=== PATIENT | male | born 1935 | race Caucasian/White ===

== ENCOUNTER 2019-04-03 09:03 | Observation (INO) | payer MEDICARE, BC, OTHER ==
[2019-04-03] MEDS ORDERED: diphenhydrAMINE 25 MG Cap PO ONE (09:51)
[2019-04-03] MEDS ORDERED: Albuterol/Ipratropium 3.0-0.5 MG/3 ML Neb Soln NEB ONE (09:52)
--- NOTE | 2019-04-03 09:59 | EDM.PDOC ---
ED HPI GENERAL MEDICAL PROBLEM - General Chief Complaint: General Stated Complaint: TONGUE BLEEDING Time Seen by Provider: 04/03/19 09:40 Source of Information: Reports: Patient History Limitations: Reports: No Limitations - History of Present Illness INITIAL COMMENTS - FREE TEXT/NARRATIVE: This 83 year old male presents to the ED with a chief complaint of progressive SOB for two weeks. He denies any chest pain or chest pressure. He states that his other main complaint is generalized itching over most of his body and felt this is somehow related to shingles he had two years ago. He denies any other complaints at this time. The patient also complains of bleeding from his tongue from time to time. Onset: Gradual Duration: Week(s): (two weeks.), Getting Worse Severity: Moderate (SOB at this time.) Improves with: Reports: None Worsens with: Reports: None Context: Reports: Activity Associated Symptoms: Reports: Cough (occasional coughing without sputum production.) - Related Data Allergies Allergy/AdvReac Type Severity Reaction Status Date / Time No Known Allergies Allergy Verified 10/10/14 10:19 Home Meds: Home Meds Ibuprofen 1 tab PO PRN 10/10/14 [History] Carvedilol [Coreg] 12.5 mg PO DAILY 04/03/19 [History] Furosemide 60 mg PO DAILY 04/03/19 [History] Losartan [Cozaar] 25 mg PO BID 04/03/19 [History] Rivaroxaban [Xarelto] 20 mg PO DAILY 04/03/19 [History] Past Medical History Cardiovascular History: Reports: Afib, High Cholesterol, Hypertension Other Cardiovascular History: PT uncertain of exact cardiac history Respiratory History: Reports: None Other Respiratory History: 50 yr history of smoking, QUIT 6 yrs Ago, do feel short of breath once in awhile Other Gastrointestinal History: Occasional heartburn treat with TUMS/Rolaids Other Genitourinary History: reported kidney issue but unk exact dx Other Musculoskeletal History: Fractured hip as Young boy - Left In hospital traction, Back injury in Oilfield work, have Low back pain Other Dermatologic History: Skin pigment changes over my arms/face - Infectious Disease History Infectious Disease History: Reports: Measles - Past Surgical History Other HEENT Surgeries/Procedures: Bilateral cataract with Lens implants Social & Family History - Family History Family Medical History: Noncontributory - Tobacco Use Smoking Status *Q: Former Smoker Used Tobacco, but Quit: Yes Month/Year Tobacco Last Used: 02/1969 - Recreational Drug Use Recreational Drug Use: No ED ROS GENERAL - Review of Systems Review Of Systems: See Below Constitutional: Reports: No Symptoms HEENT: Reports: No Symptoms Respiratory: Reports: Shortness of Breath, Wheezing (very mild wheezing.), Cough. Denies: Sputum, Hemoptysis Cardiovascular: Reports: No Symptoms, Edema (of lower extremities.), Orthopnea. Denies: Chest Pain, Claudication Endocrine: Reports: No Symptoms GI/Abdominal: Reports: No Symptoms : Reports: No Symptoms Musculoskeletal: Reports: No Symptoms Skin: Reports: Other (generalized itching without rash.) Neurological: Reports: No Symptoms Psychiatric: Reports: No Symptoms ED EXAM, GENERAL - Physical Exam Exam: See Below Exam Limited By: No Limitations General Appearance: Alert, WD/WN, No Apparent Distress Eye Exam: Bilateral Eye: EOMI, Normal Inspection, PERRL Ears: Normal External Exam, Normal Canal, Hearing Grossly Normal, Normal TMs Ear Exam: Bilateral Ear: Auricle Normal, Canal Normal, TM normal Nose: Normal Inspection, Normal Mucosa, No Blood Throat/Mouth: Normal Lips, Normal Teeth, Normal Gums, Normal Voice, No Airway Compromise, Other (very small area of bleeding from the mid anterior tongue is noted.) Head: Atraumatic, Normocephalic Neck: Normal Inspection, Supple, Non-Tender, Full Range of Motion. No: Carotid Bruit Respiratory/Chest: Rales (noted in right base.), Prolonged Expiration, Other ( No acute respiratory distress.). No: Stridor, Pleural Rub, Accessory Muscle Use , Retractions Cardiovascular: Normal Peripheral Pulses, Regular Rate, Rhythm, No JVD, Systolic Murmur (grade 2/6 best heard at the apex without radiation of murmur.) . No: Gallop/S3, Gallop/S4, Friction Rub Peripheral Pulses: 3+: Carotid (L), Carotid (R), Femoral (L), Femoral (R), Dorsalis Pedis (L), Dorsalis Pedis (R) GI/Abdominal: Normal Bowel Sounds, Soft, Non-Tender, No Organomegaly, No Distention, No Abnormal Bruit, No Mass (Male) Exam: Deferred Rectal (Males) Exam: Normal Rectal Tone, Prostate Normal, Heme + Stool (grossly positive for blood.). No: Fecal Impaction, Hemorrhoids, Mass Back Exam: Normal Inspection, Full Range of Motion, Other (No sign of rash.) Extremities: Normal Inspection, Normal Range of Motion (for age.), Non-Tender, Normal Capillary Refill, Other (pre-tibial edema 2+ of both legs.). No: Leah' s Sign, Increased Warmth, Mottled, Pallor, Redness Neurological: Alert, Oriented, CN II-XII Intact, Normal Cognition, Normal Gait, Normal Reflexes, No Motor/Sensory Deficits Skin Exam: Warm, Dry, Intact, Normal Color, No Rash. No: Zoster-Like Rash Lymphatic: No Adenopathy Course - Vital Signs Text/Narrative:: I discussed all of the patients lab and imaging studies. I told him that he has a GI bleed and that we would like to admit him for further evaluation and treatment. He agrees with the admission plan. I discussed this case with Dr. Murrieta at 1:21PM he would like to have this patient admitted to the Hospitalist and he will do endoscopy. I discussed this case with Dr. Fairbanks and he will admit the patient to [facility]. Last Recorded V/S: Last Vital Signs Temp 97.8 F 04/03/19 13:30 Pulse 80 04/03/19 13:30 Resp 18 04/03/19 13:30 BP 130/79 04/03/19 13:30 Pulse Ox 99 04/03/19 13:30 - Orders/Labs/Meds Orders: Active Orders 24 hr Category Date Time Status RT Aerosol Therapy [RC] ASDIRECTED Care 04/03/19 09:52 Active Sodium Chloride 0.9% [Normal Saline] 1,000 ml Med 04/03/19 11:00 Active IV ASDIRECTED Medication Orders Sodium Chloride (Normal Saline) 1,000 mls @ 125 mls/hr IV ASDIRECTED ROSALBA Last Admin: 04/03/19 12:21 Dose: 125 mls/hr Labs: Laboratory Tests 04/03/19 04/03/19 04/03/19 Range/Units 09:28 09:28 09:28 WBC 7.36 (4.0-11.0) K/uL RBC 3.24 L (4.50-5.90) M/uL Hgb 8.6 L (13.0-17.0) g/dL Hct 28.8 L (38.0-50.0) % MCV 88.9 (80.0-98.0) fL MCH 26.5 L (27.0-32.0) pg MCHC 29.9 L (31.0-37.0) g/dL RDW Std Deviation 50.0 (28.0-62.0) fl RDW Coeff of Dayanna 15 (11.0-15.0) % Plt Count 235 (150-400) K/uL MPV 10.20 (7.40-12.00) fL Neut % (Auto) 75.5 (48.0-80.0) % Lymph % (Auto) 8.4 L (16.0-40.0) % Trigg % (Auto) 11.8 (0.0-15.0) % Eos % (Auto) 3.8 (0.0-7.0) % Baso % (Auto) 0.5 (0.0-1.5) % Neut # (Auto) 5.6 (1.4-5.7) K/uL Lymph # (Auto) 0.6 (0.6-2.4) K/uL Trigg # (Auto) 0.9 H (0.0-0.8) K/uL Eos # (Auto) 0.3 (0.0-0.7) K/uL Baso # (Auto) 0.0 (0.0-0.1) K/uL Nucleated RBC % 0.5 /100WBC Nucleated RBCs # 0 K/uL INR 1.34 Sodium 148 (136-148) mmol/L Potassium 4.0 (3.5-5.1) mmol/L Chloride 109 H (98-107) mmol/L Carbon Dioxide 29.0 (21.0-32.0) mmol/L BUN 18 (7.0-18.0) mg/dL Creatinine 0.9 (0.8-1.3) mg/dL Est Cr Clr Drug Dosing 65.86 mL/min Estimated GFR (MDRD) > 60.0 ml/min Glucose 115 H (74-106) mg/dL Calcium 8.4 L (8.5-10.1) mg/dL Total Bilirubin 0.5 (0.2-1.0) mg/dL AST 25 (15-37) IU/L ALT 30 (14-63) IU/L Alkaline Phosphatase 75 (46-116) U/L Troponin I < 0.050 (0.000-0.056) ng/mL B-Natriuretic Peptide (<100) PG/ML Total Protein 6.3 L (6.4-8.2) g/dL Albumin 3.4 (3.4-5.0) g/dL Globulin 2.9 (2.6-4.0) g/dL Albumin/Globulin Ratio 1.2 (0.9-1.6) Blood Type Antibody Screen 04/03/19 04/03/19 Range/Units 09:28 11:07 WBC (4.0-11.0) K/uL RBC (4.50-5.90) M/uL Hgb (13.0-17.0) g/dL Hct (38.0-50.0) % MCV (80.0-98.0) fL MCH (27.0-32.0) pg MCHC (31.0-37.0) g/dL RDW Std Deviation (28.0-62.0) fl RDW Coeff of Dayanna (11.0-15.0) % Plt Count (150-400) K/uL MPV (7.40-12.00) fL Neut % (Auto) (48.0-80.0) % Lymph % (Auto) (16.0-40.0) % Trigg % (Auto) (0.0-15.0) % Eos % (Auto) (0.0-7.0) % Baso % (Auto) (0.0-1.5) % Neut # (Auto) (1.4-5.7) K/uL Lymph # (Auto) (0.6-2.4) K/uL Trigg # (Auto) (0.0-0.8) K/uL Eos # (Auto) (0.0-0.7) K/uL Baso # (Auto) (0.0-0.1) K/uL Nucleated RBC % /100WBC Nucleated RBCs # K/uL INR Sodium (136-148) mmol/L Potassium (3.5-5.1) mmol/L Chloride (98-107) mmol/L Carbon Dioxide (21.0-32.0) mmol/L BUN (7.0-18.0) mg/dL Creatinine (0.8-1.3) mg/dL Est Cr Clr Drug Dosing mL/min Estimated GFR (MDRD) ml/min Glucose (74-106) mg/dL Calcium (8.5-10.1) mg/dL Total Bilirubin (0.2-1.0) mg/dL AST (15-37) IU/L ALT (14-63) IU/L Alkaline Phosphatase (46-116) U/L Troponin I (0.000-0.056) ng/mL B-Natriuretic Peptide 282 H (<100) PG/ML Total Protein (6.4-8.2) g/dL Albumin (3.4-5.0) g/dL Globulin (2.6-4.0) g/dL Albumin/Globulin Ratio (0.9-1.6) Blood Type A NEGATIVE Antibody Screen NEGATIVE Meds: Medications Generic Name Dose Route Start Last Admin Trade Name Freq PRN Reason Stop Dose Admin Sodium Chloride 1,000 mls @ 125 mls/hr 04/03/19 11:00 04/03/19 12:21 Normal Saline IV 125 mls/hr ASDIRECTED ROSALBA Administration Discontinued Medications Generic Name Dose Route Start Last Admin Trade Name Freq PRN Reason Stop Dose Admin Albuterol/Ipratropium 3 ml 04/03/19 09:52 04/03/19 10:07 Duoneb 3.0-0.5 Mg/3 Ml NEB 04/03/19 09:53 3 ml ONETIME ONE Administration Diphenhydramine HCl 25 mg 04/03/19 09:51 04/03/19 10:07 Benadryl PO 04/03/19 09:52 25 mg ONETIME ONE Administration Iopamidol 100 ml 04/03/19 11:37 04/03/19 11:51 Isovue Multipack-370 (76%) IVPUSH 04/03/19 11:38 100 ml ONETIME STA Administration Departure - Departure Time of Disposition: 13:55 Disposition: Refer to Observation Condition: Fair Clinical Impression: Pleural effusion on right GI bleed Qualifiers: GI bleed type/associated pathology: unspecified gastrointestinal hemorrhage type Qualified Code(s): K92.2 - Gastrointestinal hemorrhage, unspecified - Discharge Information *PRESCRIPTION DRUG MONITORING PROGRAM REVIEWED*: Yes *COPY OF PRESCRIPTION DRUG MONITORING REPORT IN PATIENT ANABELA: Yes Sepsis Event Note - Evaluation Sepsis Screening Result: No Definite Risk - Focused Exam Vital Signs: Vital Signs Temp Pulse Resp BP Pulse Ox 04/03/19 13:30 97.8 F 80 18 130/79 99 04/03/19 10:30 77 16 113/70 97 04/03/19 09:25 95.6 F 91 16 125/76 93 L Date Exam was Performed: 04/03/19 Time Exam was Performed: 13:51 - My Orders Last 24 Hours: My Active Orders 04/03/19 09:52 RT Aerosol Therapy [RC] ASDIRECTED 04/03/19 11:00 Sodium Chloride 0.9% [Normal Saline] 1,000 ml IV ASDIRECTED - Assessment/Plan Last 24 Hours: My Active Orders 04/03/19 09:52 RT Aerosol Therapy [RC] ASDIRECTED 04/03/19 11:00 Sodium Chloride 0.9% [Normal Saline] 1,000 ml IV ASDIRECTED
[2019-04-03 10:20] LABS: BLOOD UREA NITROGEN,BUN 18 mg/dL (7.0-18.0); CHLORIDE,CL 109 mmol/L (98-107); GLUCOSE RANDOM 115 mg/dL (74-106); SODIUM,NA 148 mmol/L (136-148)
[2019-04-03] MEDS ORDERED: Sodium Chloride 0.9% 1,000 ML IV SCH (11:00)
--- NOTE | 2019-04-03 11:00 | CR ---
Chest: 2 views of the chest were obtained. Comparison: No previous chest x-ray. Heart is enlarged. Pulmonary vessels are increased. Lungs otherwise are clear with no alveolar type densities. Bony structures are osteopenic. Impression: 1. Findings which are suspicious for mild CHF (either acute or chronic). Diagnostic code #3 This report was dictated in [place] Standard Time
[2019-04-03] MEDS ORDERED: Iopamidol 755 MG/ML 200 ML Multipack Bottle IVPUSH STA (11:37)
--- NOTE | 2019-04-03 12:38 | CT ---
CT abdomen and pelvis Technique: Multiple axial sections were obtained from above the dome of the diaphragm inferiorly through the pubic symphysis. Intravenous contrast was utilized. No oral contrast has been given. Comparison: No prior abdominal or pelvic CT exam. Findings: Small right-sided pleural effusion is seen. Coronary artery calcification is seen. Trace pleural effusion is noted on the left side. Interstitial change is noted within both lung bases which is felt compatible with fibrosis. Small low density lesion is noted within the dome of the right lobe of the liver which is stable from prior chest CT study of 09 7. This is most likely due to a small cyst. No additional abnormality is seen within the liver. Small hiatal hernia is present. Gallbladder wall shows equivocal edema. Gallbladder shows no calcified gallstones. Spleen appears within normal limits. Presumed exophytic cyst noted off the upper right kidney measuring 6.7 cm. Kidneys are otherwise unremarkable. Adrenal glands show no nodule. Pancreas is within normal limits. Aorta shows atherosclerotic calcification which continues into the iliac vessels. No aneurysm is seen. No retroperitoneal adenopathy is seen. No mesenteric abnormalities are seen. No pelvic mass or adenopathy is noted. No free fluid or inflammatory change is seen. Prostate calcifications are noted. Appendix not visualized with certainty. Impression: 1. Small right-sided pleural effusion and trace left-sided pleural effusion. Interstitial fibrosis within both lung bases. Coronary artery calcification is also noted. 2. Small hiatal hernia. 3. Questionable gallbladder wall edema. This may be due to respiratory motion artifact but please correlate that patient has no gallbladder symptoms to indicate gallbladder ultrasound. 4. Other findings believed to be incidental. Nothing acute is appreciated on CT study of the abdomen and pelvis. No etiology is identified for the patient's bleeding. Note: Nuclear medicine GI bleed study could be considered if clinically needed. Diagnostic code #2 This report was dictated in [place] Standard Time
[2019-04-03] MEDS ORDERED: Pantoprazole 80 MG in Sodium Chloride 0.9% 20 ML IV ONE (14:41)
[2019-04-03] MEDS ORDERED: Ondansetron 4 MG/2 ML SDV IVPUSH PRN (14:42)
[2019-04-03] MEDS ORDERED: Sodium Chloride 0.9% 2.5 ML Syringe FLUSH PRN (14:42)
[2019-04-03] MEDS ORDERED: Furosemide 20 MG/2 ML VIAL IVPUSH ONE ×4 (14:43→23:04)
--- NOTE | 2019-04-03 15:22 | PCM.HP.2 ---
H&P History of Present Illness - General Date of Service: 04/03/19 Admit Problem/Dx: Admission Diagnosis/Problem Admission Diagnosis/Problem GI bleed not requiring more than 4 units of blood in 24 hours, ICU, or surgery Source of Information: Patient, Old Records History Limitations: Reports: No Limitations - History of Present Illness Initial Comments - Free Text/Narative: This 83 year old male with pmh of afib on Xarelto, CHF with severe systolic dysfunction, LV 30%, COPD, and HTN presented to the ED today with complaints of bleeding tongue. He reports he was brushing his teeth today and his tongue started bleeding. He denies obvious blood in his stools, reports they have been black, but he takes Peptobismal frequently due to some diarrhea. The last time he took it was yesterday. He reports history of heartburn and gastric ulcers. he reports he has been taking 800 mg Ibuprofen BID prescribed by PCP, along with his Xarelto. He reports increased SOB over the last two weeks. reports some swelling to lower extremities, not necessarily increased from baseline. Reports sleeping on multiple pillows at night otherwise he can't sleep. He feels more dyspneic with activity recently. He also reports itching all over, that has started the last couple weeks, he showers and it improves. No noted rashes. Denies chest pain or palpitations. No abdominal pain or urinary concerns. He denies focal neurological deficit. Reports history of smoking, but quit. Rare alcohol use and no recreational drug use. In the ED no leukocytosis noted. Hgb 8.6. BUN 18, Cr 0.9 troponin negative. BNP 289. CXR revealed cardiomegaly and mild CHF. CT of abdomen revealed sm R sided pleural effusion as well as trace L pleural effusion. Note gallbladder with mild edema, no stones. otherwise no acute findings. He was given IVFs in the ED along with benadryl for complaints of all over itching. PCP, Dr Paulino at [facility] - Related Data Allergies/Adverse Reactions: Allergies Allergy/AdvReac Type Severity Reaction Status Date / Time No Known Allergies Allergy Verified 04/03/19 14:54 Home Medications: Home Meds Ibuprofen 1 tab PO PRN 10/10/14 [History] Carvedilol [Coreg] 12.5 mg PO DAILY 04/03/19 [History] Furosemide 60 mg PO DAILY 04/03/19 [History] Losartan [Cozaar] 25 mg PO BID 04/03/19 [History] Rivaroxaban [Xarelto] 20 mg PO DAILY 04/03/19 [History] Past Medical History Cardiovascular History: Reports: Afib, CAD, Heart Failure, High Cholesterol, Hypertension Respiratory History: Reports: COPD Other Respiratory History: 50 yr history of smoking, QUIT 11 yrs Ago, do feel short of breath once in awhile Other Gastrointestinal History: Occasional heartburn treat with TUMS/Rolaids Other Genitourinary History: reported kidney issue but unk exact dx Other Musculoskeletal History: Fractured hip as Young boy - Left In hospital traction, Back injury in Oilfield work, have Low back pain Other Dermatologic History: Skin pigment changes over my arms/face - Infectious Disease History Infectious Disease History: Reports: Measles - Past Surgical History HEENT Surgical History: Reports: Tonsillectomy Other HEENT Surgeries/Procedures: Bilateral cataract with Lens implants GI Surgical History: Reports: Appendectomy Social & Family History - Family History Family Medical History: Noncontributory - Tobacco Use Smoking Status *Q: Former Smoker Used Tobacco, but Quit: Yes Month/Year Tobacco Last Used: 2009 - Caffeine Use Caffeine Use: Reports: Coffee - Alcohol Use Alcohol Use Frequency: Rarely, Socially - Recreational Drug Use Recreational Drug Use: No - Living Situation & Occupation Living situation: Reports: Occupation: Retired H&P Review of Systems - Review of Systems: Review Of Systems: See Below General: Reports: Fatigue. Denies: Fever, Chills, Malaise HEENT: Reports: Other (tongue bleeding with brushing teeth and intermittently since). Denies: Sore Throat, Vertigo Pulmonary: Reports: Shortness of Breath (with exertion). Denies: Cough, Sputum Cardiovascular: Reports: Dyspnea on Exertion, Edema. Denies: Lightheadedness Gastrointestinal: Reports: Black Stool. Denies: Abdominal Pain, Bloody Stool, Diarrhea, Nausea, Vomiting Genitourinary: Reports: No Symptoms. Denies: Dysuria, Frequency, Burning Musculoskeletal: Reports: No Symptoms. Denies: Neck Pain, Shoulder Pain, Back Pain Neurological: Reports: No Symptoms Hematologic/Lymphatic: Reports: Anemia Immunologic: Reports: No Symptoms Exam - Exam Exam: See Below - Vital Signs Vital Signs: Last Vital Signs Temp 97.3 F 04/03/19 14:45 Pulse 90 02/04/20 14:45 Resp 18 04/03/19 14:45 BP 134/67 04/03/19 14:45 Pulse Ox 99 04/03/19 14:45 Weight: 105.868 kg - Exam General: Alert, Oriented, Cooperative, Other (mild pallor noted, but patient dose have Vitiligo) HEENT: Conjunctiva Clear, Pupils Equal Lungs: Normal Respiratory Effort, Crackles (bibasilar R>L) Cardiovascular: Regular Rate, Irregular Rhythm. No: Tachycardia GI/Abdominal Exam: Normal Bowel Sounds, Soft, Non-Tender, No Distention Extremities: Normal Inspection, Normal Range of Motion, Non-Tender, No Pedal Edema Skin: Other (Vitiligo) Neuro Extensive - Mental Status: Alert, Oriented x3 Neuro Extensive - Motor, Sensory, Reflexes: CN II-XII Intact Psychiatric: Alert, Normal Affect, Normal Mood - Patient Data Lab Results Last 24 hrs: Laboratory Results - last 24 hr 04/03/19 04/03/19 04/03/19 Range/Units 09:28 09:28 09:28 WBC 7.36 (4.0-11.0) K/uL RBC 3.24 L (4.50-5.90) M/uL Hgb 8.6 L (13.0-17.0) g/dL Hct 28.8 L (38.0-50.0) % MCV 88.9 (80.0-98.0) fL MCH 26.5 L (27.0-32.0) pg MCHC 29.9 L (31.0-37.0) g/dL RDW Std Deviation 50.0 (28.0-62.0) fl RDW Coeff of Dayanna 15 (11.0-15.0) % Plt Count 235 (150-400) K/uL MPV 10.20 (7.40-12.00) fL Neut % (Auto) 75.5 (48.0-80.0) % Lymph % (Auto) 8.4 L (16.0-40.0) % Otoe % (Auto) 11.8 (0.0-15.0) % Eos % (Auto) 3.8 (0.0-7.0) % Baso % (Auto) 0.5 (0.0-1.5) % Neut # (Auto) 5.6 (1.4-5.7) K/uL Lymph # (Auto) 0.6 (0.6-2.4) K/uL Otoe # (Auto) 0.9 H (0.0-0.8) K/uL Eos # (Auto) 0.3 (0.0-0.7) K/uL Baso # (Auto) 0.0 (0.0-0.1) K/uL Nucleated RBC % 0.5 /100WBC Nucleated RBCs # 0 K/uL INR 1.34 Sodium 148 (136-148) mmol/L Potassium 4.0 (3.5-5.1) mmol/L Chloride 109 H (98-107) mmol/L Carbon Dioxide 29.0 (21.0-32.0) mmol/L BUN 18 (7.0-18.0) mg/dL Creatinine 0.9 (0.8-1.3) mg/dL Est Cr Clr Drug Dosing 65.86 mL/min Estimated GFR (MDRD) > 60.0 ml/min Glucose 115 H (74-106) mg/dL Calcium 8.4 L (8.5-10.1) mg/dL Total Bilirubin 0.5 (0.2-1.0) mg/dL AST 25 (15-37) IU/L ALT 30 (14-63) IU/L Alkaline Phosphatase 75 (46-116) U/L Troponin I < 0.050 (0.000-0.056) ng/mL B-Natriuretic Peptide (<100) PG/ML Total Protein 6.3 L (6.4-8.2) g/dL Albumin 3.4 (3.4-5.0) g/dL Globulin 2.9 (2.6-4.0) g/dL Albumin/Globulin Ratio 1.2 (0.9-1.6) Blood Type Antibody Screen Crossmatch 04/03/19 04/03/19 Range/Units 09:28 11:07 WBC (4.0-11.0) K/uL RBC (4.50-5.90) M/uL Hgb (13.0-17.0) g/dL Hct (38.0-50.0) % MCV (80.0-98.0) fL MCH (27.0-32.0) pg MCHC (31.0-37.0) g/dL RDW Std Deviation (28.0-62.0) fl RDW Coeff of Dayanna (11.0-15.0) % Plt Count (150-400) K/uL MPV (7.40-12.00) fL Neut % (Auto) (48.0-80.0) % Lymph % (Auto) (16.0-40.0) % O[place] % (Auto) (0.0-15.0) % Eos % (Auto) (0.0-7.0) % Baso % (Auto) (0.0-1.5) % Neut # (Auto) (1.4-5.7) K/uL Lymph # (Auto) (0.6-2.4) K/uL Otoe # (Auto) (0.0-0.8) K/uL Eos # (Auto) (0.0-0.7) K/uL Baso # (Auto) (0.0-0.1) K/uL Nucleated RBC % /100WBC Nucleated RBCs # K/uL INR Sodium (136-148) mmol/L Potassium (3.5-5.1) mmol/L Chloride (98-107) mmol/L Carbon Dioxide (21.0-32.0) mmol/L BUN (7.0-18.0) mg/dL Creatinine (0.8-1.3) mg/dL Est Cr Clr Drug Dosing mL/min Estimated GFR (MDRD) ml/min Glucose (74-106) mg/dL Calcium (8.5-10.1) mg/dL Total Bilirubin (0.2-1.0) mg/dL AST (15-37) IU/L ALT (14-63) IU/L Alkaline Phosphatase (46-116) U/L Troponin I (0.000-0.056) ng/mL B-Natriuretic Peptide 282 H (<100) PG/ML Total Protein (6.4-8.2) g/dL Albumin (3.4-5.0) g/dL Globulin (2.6-4.0) g/dL Albumin/Globulin Ratio (0.9-1.6) Blood Type A NEGATIVE Antibody Screen NEGATIVE Crossmatch See Detail Result Diagrams: 04/03/19 09:28 04/03/19 09:28 Jamison Results Last 24 hrs: Microbiology 04/03/19 10:49 Influenza Type A Antigen Screen - Final Nasopharyngeal Swab NEGATIVE INFLUENZA A VIRUS AG REFERENCE RANGE: NEGATIVE Influenza Type B Antigen Screen - Final NEGATIVE INFLUENZA B VIRUS AG REFERENCE RANGE: NEGATIVE Sepsis Event Note - Evaluation Sepsis Screening Result: No Definite Risk - Focused Exam Vital Signs: Vital Signs Temp Pulse Resp BP Pulse Ox 04/03/19 14:45 97.3 F 90 18 134/67 99 04/03/19 14:42 96.8 F 88 20 136/76 96 04/03/19 13:30 97.8 F 80 18 130/79 99 04/03/19 10:30 77 16 113/70 97 04/03/19 09:25 95.6 F 91 16 125/76 93 L Date Exam was Performed: 04/03/19 Time Exam was Performed: 15:16 - Problem List (1) GI bleed SNOMED Code(s): 16179717 ICD Code: K92.2 - GASTROINTESTINAL HEMORRHAGE, UNSPECIFIED Status: Acute Current Visit: Yes Qualifiers: GI bleed type/associated pathology: unspecified gastrointestinal hemorrhage type Qualified Code(s): K92.2 - Gastrointestinal hemorrhage, unspecified (2) Pleural effusion on right SNOMED Code(s): 30491387 ICD Code: J90 - PLEURAL EFFUSION, NOT ELSEWHERE CLASSIFIED Status: Acute Current Visit: Yes (3) CHF (congestive heart failure) SNOMED Code(s): 88903882 ICD Code: I50.9 - HEART FAILURE, UNSPECIFIED Status: Chronic Current Visit: Yes Qualifiers: Heart failure type: systolic Heart failure chronicity: chronic Qualified Code(s): I50.22 - Chronic systolic (congestive) heart failure (4) HTN (hypertension) SNOMED Code(s): 25035208 ICD Code: I10 - ESSENTIAL (PRIMARY) HYPERTENSION Status: Chronic Current Visit: Yes Qualifiers: Hypertension type: essential hypertension Qualified Code(s): I10 - Essential (primary) hypertension (5) Afib SNOMED Code(s): 95475759 ICD Code: I48.91 - UNSPECIFIED ATRIAL FIBRILLATION Status: Chronic Current Visit: Yes Qualifiers: Atrial fibrillation type: longstanding persistent Qualified Code(s): I48.11 - Longstanding persistent atrial fibrillation (6) Anticoagulated SNOMED Code(s): 522456260, 132458100 ICD Code: Z79.01 - ALF (CURRENT) USE OF ANTICOAGULANTS Status: Chronic Current Visit: Yes (7) COPD (chronic obstructive pulmonary disease) SNOMED Code(s): 02860441 ICD Code: J44.9 - CHRONIC OBSTRUCTIVE PULMONARY DISEASE, UNSPECIFIED Status : Chronic Current Visit: Yes Problem List Initiated/Reviewed/Updated: Yes Orders Last 24hrs: Active Orders 24 hr Category Date Time Status Admission Status [Patient Status] [ADT] Stat ADT 04/03/19 13:57 Active Height and Weight [RC] DAILY Care 04/03/19 14:42 Active Intake and Output Strict [RC] Q12H Care 04/03/19 16:00 Active Notify Provider Consults [RC] ASDIRECTED Care 04/03/19 14:55 Active Oxygen Therapy [RC] PRN Care 04/03/19 14:42 Active Up With Assistance [RC] ASDIRECTED Care 04/03/19 14:42 Active VTE/DVT Education [RC] PER UNIT ROUTINE Care 04/03/19 14:42 Active Verify Patient Consent Obtain [RC] ASDIRECTED Care 04/03/19 15:14 Ordered Vital Signs [RC] Q4H Care 04/03/19 14:42 Active Consult to Physician [CONS] Routine Cons 04/03/19 14:55 Active Nothing per Oral Now Diet [DIET] Diet 04/03/19 Dinner Active Echo Comp wo Cont [US] Routine Exams 04/03/19 14:45 Ordered BASIC METABOLIC PANEL,BMP [CHEM] AM Lab 04/04/19 05:11 Ordered CBC WITH AUTO DIFF [HEME] AM Lab 04/04/19 05:11 Ordered RED BLOOD CELLS LP [BBK] Routine Lab 04/03/19 15:14 Ordered TYPE AND SCREEN [BBK] Stat Lab 04/03/19 11:07 Results Ondansetron [Zofran] Med 04/03/19 14:42 Active 4 mg IVPUSH Q4H PRN Pantoprazole [ProTONIX IV] 40 mg Med 04/04/19 03:00 Active Sodium Chloride 0.9% [Normal Saline] 10 ml IV Q12H Sodium Chloride 0.9% [Saline Flush] Med 04/03/19 14:42 Active 2.5 ml FLUSH ASDIRECTED PRN Saline Lock Insert [OM.PC] Routine Oth 04/03/19 14:42 Ordered Transfuse Red Blood Cells [COMM] Routine Oth 04/03/19 15:14 Ordered Resuscitation Status Routine Resus Stat 04/03/19 14:42 Ordered Medication Orders Pantoprazole Sodium 40 mg/ (Sodium Chloride) 10 mls @ 300 mls/hr IV Q12H ROSALBA Ondansetron HCl (Zofran) 4 mg IVPUSH Q4H PRN PRN Reason: Nausea Sodium Chloride (Saline Flush) 2.5 ml FLUSH ASDIRECTED PRN PRN Reason: Keep Vein Open Assessment/Plan Comment:: This 83 year old male admitted with suspected GI bleed 1. GI bleeding: likely upper. No faraz bloody stools. Has been taking Ibuprofen and Xarelto. Counseled him and family he should not be taking Ibuprofen while on Xarelto due to increase in bleeding risk. Hgb 8.6 with history of CAD and CHF , will give 1 unit tonight. Monitor hgb closely. Dr Murrieta consulted from ED, I did speak with him, he will see patient this evening. NPO for now. Protnix 40 mg BID IV. 2. CHF: mild exacerbation possible due to dyspnea which may be increased by anemia. mild pleural effusions noted on CT. Will give Lasix 20 mg now and will repeat after blood given as well. Hx LVEF 30% in 2018. Will repeat ECHO. Dr Mancilla saw him 2 years ago, lexiscan performed showing mod to severe decreased in radiouptake in basal to distal inferior wall, with mod to severe inferior hypokinesis but over-all global hypokinesis. Dr Weeks wanted patient to get angiogram and he decline completely and has since not returned to see Dr Weeks. Daily weights, strict I/O. Low Na diet when restarted. 3. Afib: Chronic persistent. Continue home medications, monitor on telemetry. Hold Xarelto for now. 4. HTN: Stable. Monitor with GI bleeding. VTE prophylaxis: SCDs only due to bleeding Dispo: 2 days - Mortality Measure Prognosis:: Good
[2019-04-03] MEDS ORDERED: diphenhydrAMINE 12.5 MG/5 ML Liquid 5 ML UD Cup PO PRN (15:41)
--- NOTE | 2019-04-03 17:57 | PCM.SN ---
- Free Text/Narrative Note: pt seen, chart reviewed; gib, monitor i/o, 2 large bore iv access, wt pt every morning; avoid blood thinner; transfuse to above 10; then reassess, with pt comorbidity, severe dystolic dysfunction, CHF, Afib, HTN, COPD, would not recommend any endoscopic study if there is no hard core sign of bleeding; recommend hold off xaralto and 1600 motrin, and if h/h stable, no hard core signs of bleeding, would not recommend endoscope study; would follow pt w you; [id number]
--- NOTE | 2019-04-03 18:59 | CONS ---
DATE OF CONSULTATION: DATE OF : 1935 PRIMARY CARE PHYSICIAN: [facility] REASON FOR CONSULTATION: Consult was called, the patient is seen shortly after. Concerning question is anemia. HISTORY OF PRESENT ILLNESS: The patient is an 83-year-old gentleman seen in emergency room for a bleeding tongue. At the workup, it was noted that he was anemic and H and H were 8.6, and the patient was admitted for further management. The patient is a very poor historian or that is the way how the patient responds. He does not know whether he has black tarry stool because he is taking Pepto-Bismol. He does not know whether he is a little bit short of breath, chest pain, or lack of energy. He remarked that he is taking Xarelto for his heart and DICTATION ENDS HERE. TITUS / MARVA /[id number]
[2019-04-04] MEDS: Pantoprazole 40 MG in Sodium Chloride 0.9% 10 ML IV SCH ×2 (02:40→14:11)
[2019-04-04 03:57] LABS: BLOOD UREA NITROGEN,BUN 15 mg/dL (7.0-18.0); CARBON DIOXIDE,CO2 32.1 mmol/L (21.0-32.0); CHLORIDE,CL 109 mmol/L (98-107); GLUCOSE RANDOM 114 mg/dL (74-106); POTASSIUM,K 3.5 mmol/L (3.5-5.1); SODIUM,NA 148 mmol/L (136-148)
[2019-04-04] MEDS: Albuterol/Ipratropium 3.0-0.5 MG/3 ML Neb Soln NEB PRN ×2 (04:35→20:45)
--- NOTE | 2019-04-04 06:27 | CONS ---
DATE OF CONSULTATION: 04/03/2019 DATE OF : 1935 PRIMARY CARE PHYSICIAN: Desmond [place] Jagjit REASON FOR CONSULTATION: Consult was called, the patient is seen shortly after. Concerning question, anemia. HISTORY OF PRESENT ILLNESS: The patient is an 83-year-old gentleman with past medical history of atrial fibrillation, on Xarelto; congestive heart failure with severe systolic dysfunction, left ventricular 30%; COPD; hypertension. Seen in the emergency room complaining about bleeding from the tongue. As a matter of fact, the patient was taking Xarelto and also 800 mg ibuprofen two times a day for 1600 a day for unknown reason. The patient is a very poor historian and asking him about whether he has black tarry stool, and he said he is taking Pepto-Bismol. Black stool is normal, and never understands whether he should quit having it or not. The patient also complained of bilateral lower extremity swelling. PAST SURGICAL HISTORY: Tonsillectomy, appendectomy and cataract. ALLERGIES: Please refer to nursing for details. MEDICATIONS: Please refer to nursing for details. PHYSICAL EXAMINATION: GENERAL: A very pleasant, polite gentleman, smiled to the doctor, cooperating with examination. HEENT: Normocephalic and atraumatic. Sclerae anicteric. LUNGS: Clear to auscultation. HEART: Irregular rhythm. ABDOMEN: Soft, nontender, and no epigastric pain. LABORATORY DATA: Upon consultation, white count of 7, H and H are 8.6 and 29, platelets are 235. INR is 1.34. IMPRESSION: Anemic, 8.6, with a hemodynamically stable vital sign. The patient probably will do better to have the Xarelto stopped and also stop taking 1600 mg of Motrin a day. If the patient continues to be anemic, then the patient may be a candidate for outpatient endoscopy study. With today's situation, recommend to proceed with gastrointestinal bleeding protocol. Transfuse to above 10 and to allow for IV access and monitor in and out. There is no endoscopy planned for the time being. We will expect the Xarelto effect to disappear and then see the patient off it to determine if endoscopy is needed. With the patient's severe systolic dysfunction and other comorbidities, the patient may not need endoscopy if there is no hardcore sign of gastrointestinal bleeding. We will follow the patient with you. As always, thank you for the kind referral. TITUS / MARVA /[id number] CC: Ellen Daniel, LIGHT ADJUSTER
--- NOTE | 2019-04-04 08:28 | PCM.PN ---
- General Info Date of Service: 04/04/19 Subjective Update: Reports he feels fine, no further episodes of bleeding. States breathing has improved but still requiring oxygen. - Review of Systems General: Reports: Fever HEENT: Reports: No Symptoms Pulmonary: Reports: Shortness of Breath (improved) Cardiovascular: Reports: No Symptoms Gastrointestinal: Reports: No Symptoms Genitourinary: Reports: No Symptoms Musculoskeletal: Reports: No Symptoms Skin: Reports: No Symptoms Neurological: Reports: No Symptoms Psychiatric: Reports: No Symptoms - Patient Data Vitals - Most Recent: Last Vital Signs Temp 98.2 F 04/04/19 04:00 Pulse 92 04/04/19 04:00 Resp 20 04/04/19 04:00 BP 152/75 H 04/04/19 04:00 Pulse Ox 94 L 04/04/19 04:00 Weight - Most Recent: 100.153 kg I&O - Last 24 Hours: Intake & Output 04/03/19 04/04/19 04/04/19 22:59 06:59 14:59 Intake Total 350 360 Output Total 250 3200 Balance 100 -2840 Lab Results Last 24 Hours: Laboratory Results - last 24 hr 04/03/19 04/03/19 04/03/19 Range/Units 09:28 09:28 09:28 WBC 7.36 (4.0-11.0) K/uL RBC 3.24 L (4.50-5.90) M/uL Hgb 8.6 L (13.0-17.0) g/dL Hct 28.8 L (38.0-50.0) % MCV 88.9 (80.0-98.0) fL MCH 26.5 L (27.0-32.0) pg MCHC 29.9 L (31.0-37.0) g/dL RDW Std Deviation 50.0 (28.0-62.0) fl RDW Coeff of Dayanna 15 (11.0-15.0) % Plt Count 235 (150-400) K/uL MPV 10.20 (7.40-12.00) fL Neut % (Auto) 75.5 (48.0-80.0) % Lymph % (Auto) 8.4 L (16.0-40.0) % [place] % (Auto) 11.8 (0.0-15.0) % Eos % (Auto) 3.8 (0.0-7.0) % Baso % (Auto) 0.5 (0.0-1.5) % Neut # (Auto) 5.6 (1.4-5.7) K/uL Lymph # (Auto) 0.6 (0.6-2.4) K/uL [place] # (Auto) 0.9 H (0.0-0.8) K/uL Eos # (Auto) 0.3 (0.0-0.7) K/uL Baso # (Auto) 0.0 (0.0-0.1) K/uL Nucleated RBC % 0.5 /100WBC Nucleated RBCs # 0 K/uL INR 1.34 Sodium 148 (136-148) mmol/L Potassium 4.0 (3.5-5.1) mmol/L Chloride 109 H (98-107) mmol/L Carbon Dioxide 29.0 (21.0-32.0) mmol/L BUN 18 (7.0-18.0) mg/dL Creatinine 0.9 (0.8-1.3) mg/dL Est Cr Clr Drug Dosing 65.86 mL/min Estimated GFR (MDRD) > 60.0 ml/min Glucose 115 H (74-106) mg/dL Calcium 8.4 L (8.5-10.1) mg/dL Total Bilirubin 0.5 (0.2-1.0) mg/dL AST 25 (15-37) IU/L ALT 30 (14-63) IU/L Alkaline Phosphatase 75 (46-116) U/L Troponin I < 0.050 (0.000-0.056) ng/mL B-Natriuretic Peptide (<100) PG/ML Total Protein 6.3 L (6.4-8.2) g/dL Albumin 3.4 (3.4-5.0) g/dL Globulin 2.9 (2.6-4.0) g/dL Albumin/Globulin Ratio 1.2 (0.9-1.6) Blood Type Antibody Screen Crossmatch 04/03/19 04/03/19 04/03/19 Range/Units 09:28 11:07 21:31 WBC (4.0-11.0) K/uL RBC (4.50-5.90) M/uL Hgb 8.9 L (13.0-17.0) g/dL Hct 29.2 L (38.0-50.0) % MCV (80.0-98.0) fL MCH (27.0-32.0) pg MCHC (31.0-37.0) g/dL RDW Std Deviation (28.0-62.0) fl RDW Coeff of Dayanna (11.0-15.0) % Plt Count (150-400) K/uL MPV (7.40-12.00) fL Neut % (Auto) (48.0-80.0) % Lymph % (Auto) (16.0-40.0) % [place] % (Auto) (0.0-15.0) % Eos % (Auto) (0.0-7.0) % Baso % (Auto) (0.0-1.5) % Neut # (Auto) (1.4-5.7) K/uL Lymph # (Auto) (0.6-2.4) K/uL [place] # (Auto) (0.0-0.8) K/uL Eos # (Auto) (0.0-0.7) K/uL Baso # (Auto) (0.0-0.1) K/uL Nucleated RBC % /100WBC Nucleated RBCs # K/uL INR Sodium (136-148) mmol/L Potassium (3.5-5.1) mmol/L Chloride (98-107) mmol/L Carbon Dioxide (21.0-32.0) mmol/L BUN (7.0-18.0) mg/dL Creatinine (0.8-1.3) mg/dL Est Cr Clr Drug Dosing mL/min Estimated GFR (MDRD) ml/min Glucose (74-106) mg/dL Calcium (8.5-10.1) mg/dL Total Bilirubin (0.2-1.0) mg/dL AST (15-37) IU/L ALT (14-63) IU/L Alkaline Phosphatase (46-116) U/L Troponin I (0.000-0.056) ng/mL B-Natriuretic Peptide 282 H (<100) PG/ML Total Protein (6.4-8.2) g/dL Albumin (3.4-5.0) g/dL Globulin (2.6-4.0) g/dL Albumin/Globulin Ratio (0.9-1.6) Blood Type A NEGATIVE Antibody Screen NEGATIVE Crossmatch See Detail 04/04/19 04/04/19 Range/Units 03:37 03:37 WBC 7.50 (4.0-11.0) K/uL RBC 3.56 L (4.50-5.90) M/uL Hgb 9.7 L (13.0-17.0) g/dL Hct 30.8 L (38.0-50.0) % MCV 86.5 (80.0-98.0) fL MCH 27.2 (27.0-32.0) pg MCHC 31.5 (31.0-37.0) g/dL RDW Std Deviation 46.7 (28.0-62.0) fl RDW Coeff of Dayanna 15 (11.0-15.0) % Plt Count 187 (150-400) K/uL MPV 9.80 (7.40-12.00) fL Neut % (Auto) 75.3 (48.0-80.0) % Lymph % (Auto) 9.9 L (16.0-40.0) % [place] % (Auto) 11.1 (0.0-15.0) % Eos % (Auto) 3.2 (0.0-7.0) % Baso % (Auto) 0.5 (0.0-1.5) % Neut # (Auto) 5.7 (1.4-5.7) K/uL Lymph # (Auto) 0.7 (0.6-2.4) K/uL [place] # (Auto) 0.8 (0.0-0.8) K/uL Eos # (Auto) 0.2 (0.0-0.7) K/uL Baso # (Auto) 0.0 (0.0-0.1) K/uL Nucleated RBC % 0.0 /100WBC Nucleated RBCs # 0 K/uL INR Sodium 148 (136-148) mmol/L Potassium 3.5 (3.5-5.1) mmol/L Chloride 109 H (98-107) mmol/L Carbon Dioxide 32.1 H (21.0-32.0) mmol/L BUN 15 (7.0-18.0) mg/dL Creatinine 1.0 (0.8-1.3) mg/dL Est Cr Clr Drug Dosing 59.28 mL/min Estimated GFR (MDRD) > 60.0 ml/min Glucose 114 H (74-106) mg/dL Calcium 8.2 L (8.5-10.1) mg/dL Total Bilirubin (0.2-1.0) mg/dL AST (15-37) IU/L ALT (14-63) IU/L Alkaline Phosphatase (46-116) U/L Troponin I (0.000-0.056) ng/mL B-Natriuretic Peptide (<100) PG/ML Total Protein (6.4-8.2) g/dL Albumin (3.4-5.0) g/dL Globulin (2.6-4.0) g/dL Albumin/Globulin Ratio (0.9-1.6) Blood Type Antibody Screen Crossmatch [facility] Results Last 24 Hours: Microbiology 04/03/19 10:49 Influenza Type A Antigen Screen - Final Nasopharyngeal Swab NEGATIVE INFLUENZA A VIRUS AG REFERENCE RANGE: NEGATIVE Influenza Type B Antigen Screen - Final NEGATIVE INFLUENZA B VIRUS AG REFERENCE RANGE: NEGATIVE Med Orders - Current: Current Medications Albuterol/Ipratropium (Duoneb 3.0-0.5 Mg/3 Ml) 3 ml NEB Q6HRRT PRN PRN Reason: Wheezing Last Admin: 04/04/19 04:35 Dose: 3 ml Diphenhydramine HCl (Benadryl) 12.5 mg PO Q8H PRN PRN Reason: Itching Pantoprazole Sodium 40 mg/ (Sodium Chloride) 10 mls @ 300 mls/hr IV Q12H [facility] Last Admin: 04/04/19 02:40 Dose: 300 mls/hr Ondansetron HCl (Zofran) 4 mg IVPUSH Q4H PRN PRN Reason: Nausea Sodium Chloride (Saline Flush) 2.5 ml FLUSH ASDIRECTED PRN PRN Reason: Keep Vein Open Discontinued Medications Albuterol/Ipratropium (Duoneb 3.0-0.5 Mg/3 Ml) 3 ml NEB ONETIME ONE Stop: 04/03/19 09:53 Last Admin: 04/03/19 10:07 Dose: 3 ml Diphenhydramine HCl (Benadryl) 25 mg PO ONETIME ONE Stop: 04/03/19 09:52 Last Admin: 04/03/19 10:07 Dose: 25 mg Furosemide (Lasix) 20 mg IVPUSH NOW ONE Stop: 04/03/19 14:44 Last Admin: 04/03/19 15:35 Dose: 20 mg Furosemide (Lasix) 20 mg IVPUSH ONETIME ONE Stop: 04/03/19 20:16 Last Admin: 04/03/19 20:22 Dose: 20 mg Furosemide (Lasix) 20 mg IVPUSH ONETIME ONE Stop: 04/03/19 23:05 Last Admin: 04/04/19 02:41 Dose: 20 mg Sodium Chloride (Normal Saline) 1,000 mls @ 125 mls/hr IV ASDIRECTED [facility] Last Admin: 04/03/19 12:21 Dose: 125 mls/hr Pantoprazole Sodium 80 mg/ (Sodium Chloride) 20 mls @ 400 mls/hr IV NOW ONE Stop: 04/03/19 14:43 Last Admin: 04/03/19 15:34 Dose: 400 mls/hr Iopamidol (Isovue Multipack-370 (76%)) 100 ml IVPUSH ONETIME STA Stop: 04/03/19 11:38 Last Admin: 04/03/19 11:51 Dose: 100 ml - Exam Quality Assessment: Supplemental Oxygen General: Alert, Oriented, Cooperative Lungs: Normal Respiratory Effort, Crackles (right base) Cardiovascular: Irregular Rhythm GI/Abdominal Exam: Normal Bowel Sounds, Soft, Non-Tender, No Distention Extremities: No Pedal Edema Skin: Warm, Dry, Intact Neurological: No New Focal Deficit Psy/Mental Status: Alert, Normal Affect, Normal Mood Sepsis Event Note - Evaluation Sepsis Screening Result: No Definite Risk - Focused Exam Vital Signs: Vital Signs Temp Temp Pulse Resp BP Pulse Ox 04/04/19 04:00 98.2 F 92 20 152/75 H 94 L 04/04/19 03:36 38.8 F L 92 20 152/75 H 94 L 04/04/19 02:36 98.2 F 90 20 132/81 95 04/03/19 23:49 98.1 F 92 18 120/56 L 94 L 04/03/19 23:34 98.6 F 87 18 128/61 04/03/19 23:00 98.4 F 92 20 120/56 L 94 L 04/03/19 21:14 98.8 F 91 18 143/73 H 94 L Date Exam was Performed: 04/04/19 Time Exam was Performed: 12:10 - Problem List Review Problem List Initiated/Reviewed/Updated: Yes - Plan Plan:: This 83 year old male admitted with suspected GI bleed 1. GI bleeding s/p transfusion of 1 unit of blood.: likely upper. No faraz bloody stools. Has been taking Ibuprofen and Xarelto. Counseled about combining those medications. Hemoglobin improved from 8.6 to 9.7 after unit of blood. Dr. Murrieta consulted and recommended outpatient scope only if continues to bleed. If no longer bleeding may be higher risk to scope due to comorbidities.Advance to clear liquid diet . Continue Protonix 40 mg BID IV. Will recheck H/H with iron studies this PM. 2. Hypoxia secondary to CHF exacerbation: mild exacerbation possible due to dyspnea which may be increased by anemia. mild pleural effusions noted on CT. Received several doses of Lasix yesterday, patient notes improvement but now on 2 L of oxygen. States has oxygen at home as needed. Will give another 40 mg of IV lasix today. Hx LVEF 30% in 2018. Echo pending. Dr Weeks saw him 2 years ago, lexiscan performed showing mod to severe decreased in radiouptake in basal to distal inferior wall, with mod to severe inferior hypokinesis but over-all global hypokinesis. Dr Weeks wanted patient to get angiogram and he decline completely and has since not returned to see Dr Weeks. Daily weights, strict I/O. Low Na diet when restarted. 3. Fever- spiked temp last night, no white count, CXR clear, will get UA, and monitor for further fever. Tylenol if he develops. 3. Afib: Chronic persistent. Continue home medications, monitor on telemetry. Hold Xarelto for now. 4. HTN: Stable. Monitor with GI bleeding. VTE prophylaxis: SCDs only due to bleeding
[2019-04-04] MEDS ORDERED: Furosemide 40 MG/4 ML VIAL IVPUSH ONE (11:43)
[2019-04-04] MEDS: Losartan 50 MG Tab PO SCH ×2 (12:35→20:42)
[2019-04-04] MEDS: Carvedilol 12.5 MG Tab PO SCH (12:36)
--- NOTE | 2019-04-04 13:08 | PCM.SURGPN ---
- General Info Date of Service: 04/04/19 Functional Status: Reports: Pain Controlled ("I am hungry", denied abd pain, got 1 RBC, h/h 8.7 to 9.7; uop > 1L /24hr) - Review of Systems General: Reports: No Symptoms Gastrointestinal: Reports: No Symptoms - Patient Data Vitals - Most Recent: Last Vital Signs Temp 208.6 F H 04/04/19 12:00 Pulse 104 H 04/04/19 12:36 Resp 22 H 04/04/19 12:00 BP 155/58 H 04/04/19 12:36 Pulse Ox 94 L 04/04/19 12:00 Weight - Most Recent: 220 lb 12.8 oz I&O - Last 24 Hours: Intake & Output 04/03/19 04/04/19 04/04/19 22:59 06:59 14:59 Intake Total 350 360 Output Total 250 3200 Balance 100 -2840 Lab Results Last 24 Hrs: Laboratory Results - last 24 hr 04/03/19 04/03/19 04/04/19 Range/Units 11:07 21:31 03:37 WBC 7.50 (4.0-11.0) K/uL RBC 3.56 L (4.50-5.90) M/uL Hgb 8.9 L 9.7 L (13.0-17.0) g/dL Hct 29.2 L 30.8 L (38.0-50.0) % MCV 86.5 (80.0-98.0) fL MCH 27.2 (27.0-32.0) pg MCHC 31.5 (31.0-37.0) g/dL RDW Std Deviation 46.7 (28.0-62.0) fl RDW Coeff of Dayanna 15 (11.0-15.0) % Plt Count 187 (150-400) K/uL MPV 9.80 (7.40-12.00) fL Neut % (Auto) 75.3 (48.0-80.0) % Lymph % (Auto) 9.9 L (16.0-40.0) % [place] % (Auto) 11.1 (0.0-15.0) % Eos % (Auto) 3.2 (0.0-7.0) % Baso % (Auto) 0.5 (0.0-1.5) % Neut # (Auto) 5.7 (1.4-5.7) K/uL Lymph # (Auto) 0.7 (0.6-2.4) K/uL [place] # (Auto) 0.8 (0.0-0.8) K/uL Eos # (Auto) 0.2 (0.0-0.7) K/uL Baso # (Auto) 0.0 (0.0-0.1) K/uL Nucleated RBC % 0.0 /100WBC Nucleated RBCs # 0 K/uL Sodium (136-148) mmol/L Potassium (3.5-5.1) mmol/L Chloride (98-107) mmol/L Carbon Dioxide (21.0-32.0) mmol/L BUN (7.0-18.0) mg/dL Creatinine (0.8-1.3) mg/dL Est Cr Clr Drug Dosing mL/min Estimated GFR (MDRD) ml/min Glucose (74-106) mg/dL Calcium (8.5-10.1) mg/dL Blood Type A NEGATIVE Antibody Screen NEGATIVE Crossmatch See Detail 04/04/19 Range/Units 03:37 WBC (4.0-11.0) K/uL RBC (4.50-5.90) M/uL Hgb (13.0-17.0) g/dL Hct (38.0-50.0) % MCV (80.0-98.0) fL MCH (27.0-32.0) pg MCHC (31.0-37.0) g/dL RDW Std Deviation (28.0-62.0) fl RDW Coeff of Dayanna (11.0-15.0) % Plt Count (150-400) K/uL MPV (7.40-12.00) fL Neut % (Auto) (48.0-80.0) % Lymph % (Auto) (16.0-40.0) % [place] % (Auto) (0.0-15.0) % Eos % (Auto) (0.0-7.0) % Baso % (Auto) (0.0-1.5) % Neut # (Auto) (1.4-5.7) K/uL Lymph # (Auto) (0.6-2.4) K/uL [place] # (Auto) (0.0-0.8) K/uL Eos # (Auto) (0.0-0.7) K/uL Baso # (Auto) (0.0-0.1) K/uL Nucleated RBC % /100WBC Nucleated RBCs # K/uL Sodium 148 (136-148) mmol/L Potassium 3.5 (3.5-5.1) mmol/L Chloride 109 H (98-107) mmol/L Carbon Dioxide 32.1 H (21.0-32.0) mmol/L BUN 15 (7.0-18.0) mg/dL Creatinine 1.0 (0.8-1.3) mg/dL Est Cr Clr Drug Dosing 59.28 mL/min Estimated GFR (MDRD) > 60.0 ml/min Glucose 114 H (74-106) mg/dL Calcium 8.2 L (8.5-10.1) mg/dL Blood Type Antibody Screen Crossmatch [facility] Results Last 24 Hrs: Microbiology 04/03/19 10:49 Influenza Type A Antigen Screen - Final Nasopharyngeal Swab NEGATIVE INFLUENZA A VIRUS AG REFERENCE RANGE: NEGATIVE Influenza Type B Antigen Screen - Final NEGATIVE INFLUENZA B VIRUS AG REFERENCE RANGE: NEGATIVE Med Orders - Current: Current Medications Albuterol/Ipratropium (Duoneb 3.0-0.5 Mg/3 Ml) 3 ml NEB Q6HRRT PRN PRN Reason: Wheezing Last Admin: 04/04/19 04:35 Dose: 3 ml Carvedilol (Coreg) 12.5 mg PO DAILY [facility] Last Admin: 04/04/19 12:36 Dose: 12.5 mg Diphenhydramine HCl (Benadryl) 12.5 mg PO Q8H PRN PRN Reason: Itching Pantoprazole Sodium 40 mg/ (Sodium Chloride) 10 mls @ 300 mls/hr IV Q12H [facility] Last Admin: 04/04/19 02:40 Dose: 300 mls/hr Losartan Potassium (Cozaar) 25 mg PO BID [facility] Last Admin: 04/04/19 12:35 Dose: 25 mg Ondansetron HCl (Zofran) 4 mg IVPUSH Q4H PRN PRN Reason: Nausea Sodium Chloride (Saline Flush) 2.5 ml FLUSH ASDIRECTED PRN PRN Reason: Keep Vein Open Discontinued Medications Albuterol/Ipratropium (Duoneb 3.0-0.5 Mg/3 Ml) 3 ml NEB ONETIME ONE Stop: 04/03/19 09:53 Last Admin: 04/03/19 10:07 Dose: 3 ml Diphenhydramine HCl (Benadryl) 25 mg PO ONETIME ONE Stop: 04/03/19 09:52 Last Admin: 04/03/19 10:07 Dose: 25 mg Furosemide (Lasix) 20 mg IVPUSH NOW ONE Stop: 04/03/19 14:44 Last Admin: 04/03/19 15:35 Dose: 20 mg Furosemide (Lasix) 20 mg IVPUSH ONETIME ONE Stop: 04/03/19 20:16 Last Admin: 04/03/19 20:22 Dose: 20 mg Furosemide (Lasix) 20 mg IVPUSH ONETIME ONE Stop: 04/03/19 23:05 Last Admin: 04/04/19 02:41 Dose: 20 mg Furosemide (Lasix) 40 mg IVPUSH NOW ONE Stop: 04/04/19 11:44 Last Admin: 04/04/19 12:37 Dose: 40 mg Sodium Chloride (Normal Saline) 1,000 mls @ 125 mls/hr IV ASDIRECTED [facility]AL[facility] Last Admin: 04/03/19 12:21 Dose: 125 mls/hr Pantoprazole Sodium 80 mg/ (Sodium Chloride) 20 mls @ 400 mls/hr IV NOW ONE Stop: 04/03/19 14:43 Last Admin: 04/03/19 15:34 Dose: 400 mls/hr Iopamidol (Isovue Multipack-370 (76%)) 100 ml IVPUSH ONETIME STA Stop: 04/03/19 11:38 Last Admin: 04/03/19 11:51 Dose: 100 ml - Exam General: Alert, Oriented GI/Abdominal Exam: Soft, Non-Tender, No Distention Sepsis Event Note - Evaluation Sepsis Screening Result: No Definite Risk - Focused Exam Vital Signs: Vital Signs Temp Temp Pulse Pulse Resp BP BP 04/04/19 12:36 104 H 155/58 H 04/04/19 12:35 155/58 H 04/04/19 12:00 208.6 F H 88 22 H 147/84 H 04/04/19 08:00 97.8 F 86 16 115/62 04/04/19 04:00 98.2 F 92 20 152/75 H 04/04/19 03:36 38.8 F L 92 20 152/75 H 04/04/19 02:36 98.2 F 90 20 132/81 Pulse Ox 04/04/19 12:36 04/04/19 12:35 04/04/19 12:00 94 L 04/04/19 08:00 96 04/04/19 04:00 94 L 04/04/19 03:36 94 L 04/04/19 02:36 95 Date Exam was Performed: 04/04/19 Time Exam was Performed: 13:02 - Problem List Review Problem List Initiated/Reviewed/Updated: Yes - My Orders Last 24 Hours: Active Orders 24 hr Category Date Time Status Admission Status [Patient Status] [ADT] Stat ADT 04/03/19 13:57 Active Communication Order [RC] ROUTINE Care 04/03/19 15:40 Active Height and Weight [RC] DAILY Care 04/03/19 14:42 Active Intake and Output Strict [RC] Q12H Care 04/03/19 16:00 Active Notify Provider Consults [RC] ASDIRECTED Care 04/03/19 14:55 Active Oxygen Therapy [RC] PRN Care 04/03/19 14:42 Active RT Aerosol Therapy [RC] ASDIRECTED Care 04/04/19 04:20 Active Telemetry Monitoring [Cardiac Monitoring] [RC] Q8H Care 04/03/19 14:25 Active Up With Assistance [RC] ASDIRECTED Care 04/03/19 14:42 Active VTE/DVT Education [RC] PER UNIT ROUTINE Care 04/03/19 14:42 Active Verify Patient Consent Obtain [RC] ASDIRECTED Care 04/03/19 15:14 Active Vital Signs [RC] Q4H Care 04/03/19 14:42 Active Consult to Physician [CONS] Routine Cons 04/03/19 14:55 Active Clear Liquid Diet [DIET] Diet 04/04/19 Dinner Active Nothing per Oral Now Diet [DIET] Diet 04/03/19 Dinner Active Echo Comp wo Cont [US] Routine Exams 04/03/19 14:45 Taken BASIC METABOLIC PANEL,BMP [CHEM] AM Lab 04/05/19 05:11 Ordered CBC WITH AUTO DIFF [HEME] AM Lab 04/05/19 05:11 Ordered FERRITIN [CHEM] Routine Lab 04/04/19 17:00 Ordered HEMOGLOBIN/HEMATOCRIT,HH [HEME] Routine Lab 04/04/19 17:00 Ordered IRON/TIBC [CHEM] Routine Lab 04/04/19 17:00 Ordered Albuterol/Ipratropium [DuoNeb 3.0-0.5 MG/3 ML] Med 04/04/19 04:19 Active 3 ml NEB Q6HRRT PRN Losartan [Cozaar] Med 04/04/19 11:45 Active 25 mg PO BID Ondansetron [Zofran] Med 04/03/19 14:42 Active 4 mg IVPUSH Q4H PRN Pantoprazole [ProTONIX IV] 40 mg Med 04/04/19 03:00 Active Sodium Chloride 0.9% [Normal Saline] 10 ml IV Q12H Sodium Chloride 0.9% [Saline Flush] Med 04/03/19 14:42 Active 2.5 ml FLUSH ASDIRECTED PRN carvediloL [Coreg] Med 04/04/19 11:45 Active 12.5 mg PO DAILY diphenhydrAMINE [Benadryl] Med 04/03/19 15:41 Active 12.5 mg PO Q8H PRN Saline Lock Insert [OM.PC] Routine Oth 04/03/19 14:42 Ordered Transfuse Red Blood Cells [COMM] Routine Oth 04/03/19 23:04 Ordered Resuscitation Status Routine Resus Stat 04/03/19 14:42 Ordered Medication Orders Albuterol/Ipratropium (Duoneb 3.0-0.5 Mg/3 Ml) 3 ml NEB Q6HRRT PRN PRN Reason: Wheezing Last Admin: 04/04/19 04:35 Dose: 3 ml Carvedilol (Coreg) 12.5 mg PO DAILY [facility] Last Admin: 04/04/19 12:36 Dose: 12.5 mg Diphenhydramine HCl (Benadryl) 12.5 mg PO Q8H PRN PRN Reason: Itching Pantoprazole Sodium 40 mg/ (Sodium Chloride) 10 mls @ 300 mls/hr IV Q12H [facility] Last Admin: 04/04/19 02:40 Dose: 300 mls/hr Losartan Potassium (Cozaar) 25 mg PO BID [facility] Last Admin: 04/04/19 12:35 Dose: 25 mg Ondansetron HCl (Zofran) 4 mg IVPUSH Q4H PRN PRN Reason: Nausea Sodium Chloride (Saline Flush) 2.5 ml FLUSH ASDIRECTED PRN PRN Reason: Keep Vein Open - Assessment Assessment (Free Text/Narrative):: clinically doing very well, no abd pain, got 1 RBC, h/h increased 1 digit; adequate urine output, "my last BM was yellow and brown", there is no hard core signs of bleeding; pt can start PO diet and discharge home, follow up 1 - 2 wks PRN; previous note from studio hand suggested significant cardiac issue; will sign off, if surgical need arise, please recall oncall surgery consult; thanks for the consult and care of this pleasent pt - Plan Plan (Free Text/Narrative):: clinically doing very well, no abd pain, got 1 RBC, h/h increased 1 digit; adequate urine output, "my last BM was yellow and brown", there is no hard core signs of bleeding; pt can start PO diet and discharge home, follow up 1 - 2 wks PRN; previous note from studio hand suggested significant cardiac issue; will sign off, if surgical need arise, please recall oncall surgery consult; thanks for the consult and care of this pleasent pt
[2019-04-05] MEDS: Pantoprazole 40 MG in Sodium Chloride 0.9% 10 ML IV SCH (03:45)
[2019-04-05 06:38] LABS: BLOOD UREA NITROGEN,BUN 16 mg/dL (7.0-18.0); CARBON DIOXIDE,CO2 31.5 mmol/L (21.0-32.0); CHLORIDE,CL 103 mmol/L (98-107); GLUCOSE RANDOM 109 mg/dL (74-106); POTASSIUM,K 3.1 mmol/L (3.5-5.1); SODIUM,NA 142 mmol/L (136-148)
[2019-04-05] MEDS ORDERED: Potassium Chloride 20 MEQ Tab.ER PO ONE (07:00)
[2019-04-05] MEDS: Losartan 50 MG Tab PO SCH (08:20)
[2019-04-05] MEDS: Carvedilol 12.5 MG Tab PO SCH (08:21)
[2019-04-05] MEDS ORDERED: Furosemide 20 MG/2 ML VIAL IVPUSH ONE (09:39)
--- NOTE | 2019-04-05 11:11 | PCM.DCSUM1 ---
<Margarette Pitts - Last Filed: 04/05/19 11:37> Discharge Summary - Hospital Course HPI Initial Comments: Admission Date: 04/03/19 Discharge Date: 04/05/19 Admission Diagnosis: 1. GI bleed 2. CHF 3. Afib 4. HTN Discharge Diagnosis: 1. GI bleed- resolved 2. CHF exacerbation 3. Afib 4. HTN 5. Fever-resolved Procedures: None Consults: None Hospital Course: This 83-year-old male with PMH of afib on Xarelto, CHF with severe systolic dysfunction, LV 30%, COPD, and HTN presented to the ED today with complaints of bleeding tongue. He reported he has been taking 800 mg Ibuprofen BID prescribed by PCP, along with his Xarelto. He reported increased SOB over the last two weeks. In the ED no leukocytosis noted. Hgb 8.6. BUN 18, Cr 0.9 troponin negative. BNP 289. CXR revealed cardiomegaly and mild CHF. CT of abdomen revealed sm R sided pleural effusion as well as trace L pleural effusion. Note gallbladder with mild edema, no stones. otherwise no acute findings. He was admitted to the medical floor. For his GI Bleed, Xarelto and ibuprofen held, kept NPO, given PPI IV, and transfused one unit. His hemoglobin improved from 8.6 to 9.7 and was 10.1 on discharge. Xarelto was restarted after discussion with family about risks/benefits. Was evaluated by Dr. Murrieta, general surgery, who recommended outpatient colonoscopy only if he continues to bleed. If bleeding resolves, colonoscopy would be high risk due to age and comorbidities. Iron studies obtain and iron on the lower side of normal, with low ferritin, iron tabs started. Bleeding stopped and diet was advanced as tolerated. He also developed need for oxygen, thought to be due to CHF exacerbation. He was given several doses of Lasix and he improved but was still requiring oxygen. Did have one episode of fever, after transfusion, CXR negative and UA negative. Remained afebrile after that. Continued on home medications for other chronic issues. By day of discharge, hemoglobin was stable, no sign of active bleeding, tolerating oral diet, and requesting discharge. Disposition: Home Discharge Condition: vitals stable, tolerating oral diet, ambulating without difficulty, symptom improvement Discharge Instructions: regular diet as tolerated, activity as tolerated, take medications as prescribed. Symptoms to report to physician include fever/chills , chest pain, shortness of breath, abdominal pain, erythema, drainage/discharge , or not improving as expected. Check weight daily, inform PCP if you gain more than 1 lb in 1 day or more than 3 lbs in 5 days, you may be fluid overloaded. Stop Xarelto and call PCP if signs of bleeding. Discharge Medications: Carvedilol [Coreg] 12.5 mg PO DAILY Furosemide 60 mg PO DAILY Losartan [Cozaar] 25 mg PO BID Rivaroxaban [Xarelto] 20 mg PO DAILY Ferrous Sulfate 325 mg PO BIDMEALS Pantoprazole Sodium [Protonix] 40 mg PO BID Follow-up: 1. PCP- Dr. Paulino 04/12/19 2. General Surgery- Dr. Murrieta 04/19/19 - Discharge Data Discharge Date: 04/05/19 Discharge Disposition: Home, Self-Care 01 Condition: Stable - Referral to Home Health Primary Care Physician: [facility] - Patient Summary/Data Consults: Consultations 04/03/19 14:55 Consult to Physician [CONS] Routine - Discharge Plan *PRESCRIPTION DRUG MONITORING PROGRAM REVIEWED*: Yes *COPY OF PRESCRIPTION DRUG MONITORING REPORT IN PATIENT ANABELA: Yes Prescriptions/Med Rec: Ferrous Sulfate 325 mg PO BIDMEALS 14 Days #28 tablet Pantoprazole Sodium [Protonix] 40 mg PO BID 14 Days #28 tablet. Home Medications: Home Meds Carvedilol [Coreg] 12.5 mg PO DAILY 04/03/19 [History] Furosemide 60 mg PO DAILY 04/03/19 [History] Losartan [Cozaar] 25 mg PO BID 04/03/19 [History] Rivaroxaban [Xarelto] 20 mg PO DAILY 04/03/19 [History] Ferrous Sulfate 325 mg PO BIDMEALS 14 Days #28 tablet 04/05/19 [Rx] Pantoprazole Sodium [Protonix] 40 mg PO BID 14 Days #28 tablet. 04/05/19 [Rx] Patient Handouts: Gastrointestinal Bleeding, [id number], Pantoprazole tablets , Heart Failure, [id number] Referrals: Charles Murrieta MD [Physician] - 04/19/19 3:00 pm Troy Paulino MD [Physician] - 04/12/19 11:00 am - Discharge Summary/Plan Comment DC Time >30 min.: No - Patient Data Vitals - Most Recent: Last Vital Signs Temp 98.1 F 04/05/19 07:42 Pulse 87 04/05/19 08:21 Resp 14 04/05/19 07:42 BP 133/82 04/05/19 08:21 Pulse Ox 95 04/05/19 08:55 Weight - Most Recent: 97.069 kg I&O - Last 24 hours: Intake & Output 04/04/19 04/05/19 04/05/19 22:59 06:59 14:59 Intake Total 780 420 Output Total 2390 550 Balance -1610 -130 Lab Results - Last 24 hrs: Laboratory Results - last 24 hr 04/04/19 04/04/19 04/04/19 Range/Units 11:25 16:51 16:51 WBC (4.0-11.0) K/uL RBC (4.50-5.90) M/uL Hgb 10.1 L (13.0-17.0) g/dL Hct 32.0 L (38.0-50.0) % MCV (80.0-98.0) fL MCH (27.0-32.0) pg MCHC (31.0-37.0) g/dL RDW Std Deviation (28.0-62.0) fl RDW Coeff of Dayanna (11.0-15.0) % Plt Count (150-400) K/uL MPV (7.40-12.00) fL Neut % (Auto) (48.0-80.0) % Lymph % (Auto) (16.0-40.0) % [place] % (Auto) (0.0-15.0) % Eos % (Auto) (0.0-7.0) % Baso % (Auto) (0.0-1.5) % Neut # (Auto) (1.4-5.7) K/uL Lymph # (Auto) (0.6-2.4) K/uL [place] # (Auto) (0.0-0.8) K/uL Eos # (Auto) (0.0-0.7) K/uL Baso # (Auto) (0.0-0.1) K/uL Nucleated RBC % /100WBC Nucleated RBCs # K/uL Sodium (136-148) mmol/L Potassium (3.5-5.1) mmol/L Chloride (98-107) mmol/L Carbon Dioxide (21.0-32.0) mmol/L BUN (7.0-18.0) mg/dL Creatinine (0.8-1.3) mg/dL Est Cr Clr Drug Dosing mL/min Estimated GFR (MDRD) ml/min Glucose (74-106) mg/dL Calcium (8.5-10.1) mg/dL Magnesium (1.8-2.4) mg/dL Iron 61 (50-175) ug/dL TIBC 442 (250-450) ug/dL % Saturation 13.80 L (20-55) % Ferritin 21 L (26-388) ng/mL Urine Color YELLOW Urine Appearance CLEAR Urine pH 7.5 (5.0-8.0) Ur Specific Gamaliel 1.015 (1.001-1.035) Urine Protein NEGATIVE (NEGATIVE) mg/dL Urine Glucose (UA) NEGATIVE (NEGATIVE) mg/dL Urine Ketones 15 H (NEGATIVE) mg/dL Urine Occult Blood NEGATIVE (NEGATIVE) Urine Nitrite NEGATIVE (NEGATIVE) Urine Bilirubin NEGATIVE (NEGATIVE) Urine Urobilinogen 2.0 H (<2.0) EU/dL Ur Leukocyte Esterase NEGATIVE (NEGATIVE) 04/05/19 04/05/19 04/05/19 Range/Units 06:01 06:01 06:01 WBC 7.42 (4.0-11.0) K/uL RBC 3.75 L (4.50-5.90) M/uL Hgb 10.1 L (13.0-17.0) g/dL Hct 32.2 L (38.0-50.0) % MCV 85.9 (80.0-98.0) fL MCH 26.9 L (27.0-32.0) pg MCHC 31.4 (31.0-37.0) g/dL RDW Std Deviation 47.0 (28.0-62.0) fl RDW Coeff of Dayanna 15 (11.0-15.0) % Plt Count 205 (150-400) K/uL MPV 10.10 (7.40-12.00) fL Neut % (Auto) 72.8 (48.0-80.0) % Lymph % (Auto) 10.5 L (16.0-40.0) % [place] % (Auto) 12.1 (0.0-15.0) % Eos % (Auto) 3.9 (0.0-7.0) % Baso % (Auto) 0.7 (0.0-1.5) % Neut # (Auto) 5.4 (1.4-5.7) K/uL Lymph # (Auto) 0.8 (0.6-2.4) K/uL [place] # (Auto) 0.9 H (0.0-0.8) K/uL Eos # (Auto) 0.3 (0.0-0.7) K/uL Baso # (Auto) 0.1 (0.0-0.1) K/uL Nucleated RBC % 0.0 /100WBC Nucleated RBCs # 0 K/uL Sodium 142 (136-148) mmol/L Potassium 3.1 L (3.5-5.1) mmol/L Chloride 103 (98-107) mmol/L Carbon Dioxide 31.5 (21.0-32.0) mmol/L BUN 16 (7.0-18.0) mg/dL Creatinine 0.9 (0.8-1.3) mg/dL Est Cr Clr Drug Dosing 65.86 mL/min Estimated GFR (MDRD) > 60.0 ml/min Glucose 109 H (74-106) mg/dL Calcium 8.5 (8.5-10.1) mg/dL Magnesium 1.8 (1.8-2.4) mg/dL Iron (50-175) ug/dL TIBC (250-450) ug/dL % Saturation (20-55) % Ferritin (26-388) ng/mL Urine Color Urine Appearance Urine pH (5.0-8.0) Ur Specific [place] (1.001-1.035) Urine Protein (NEGATIVE) mg/dL Urine Glucose (UA) (NEGATIVE) mg/dL Urine Ketones (NEGATIVE) mg/dL Urine Occult Blood (NEGATIVE) Urine Nitrite (NEGATIVE) Urine Bilirubin (NEGATIVE) Urine Urobilinogen (<2.0) EU/dL Ur Leukocyte Esterase (NEGATIVE) Med Orders - Current: Current Medications Albuterol/Ipratropium (Duoneb 3.0-0.5 Mg/3 Ml) 3 ml NEB Q6HRRT PRN PRN Reason: Wheezing Last Admin: 04/04/19 20:45 Dose: 3 ml Carvedilol (Coreg) 12.5 mg PO DAILY PENDING SALE TO [facility] Last Admin: 04/05/19 08:21 Dose: 12.5 mg Diphenhydramine HCl (Benadryl) 12.5 mg PO Q8H PRN PRN Reason: Itching Last Admin: 04/05/19 00:05 Dose: 12.5 mg Pantoprazole Sodium 40 mg/ (Sodium Chloride) 10 mls @ 300 mls/hr IV Q12H ROSALBA Last Admin: 04/05/19 03:45 Dose: 300 mls/hr Losartan Potassium (Cozaar) 25 mg PO BID PENDING SALE TO [facility] Last Admin: 04/05/19 08:20 Dose: 25 mg Non-Formulary Medication (Rivaroxaban [Xarelto]) 20 mg PO DAILY PENDING SALE TO [facility] Ondansetron HCl (Zofran) 4 mg IVPUSH Q4H PRN PRN Reason: Nausea Sodium Chloride (Saline Flush) 2.5 ml FLUSH ASDIRECTED PRN PRN Reason: Keep Vein Open Discontinued Medications Albuterol/Ipratropium (Duoneb 3.0-0.5 Mg/3 Ml) 3 ml NEB ONETIME ONE Stop: 04/03/19 09:53 Last Admin: 04/03/19 10:07 Dose: 3 ml Diphenhydramine HCl (Benadryl) 25 mg PO ONETIME ONE Stop: 04/03/19 09:52 Last Admin: 04/03/19 10:07 Dose: 25 mg Furosemide (Lasix) 20 mg IVPUSH NOW ONE Stop: 04/03/19 14:44 Last Admin: 04/03/19 15:35 Dose: 20 mg Furosemide (Lasix) 20 mg IVPUSH ONETIME ONE Stop: 04/03/19 20:16 Last Admin: 04/03/19 20:22 Dose: 20 mg Furosemide (Lasix) 20 mg IVPUSH ONETIME ONE Stop: 04/03/19 23:05 Last Admin: 04/04/19 02:41 Dose: 20 mg Furosemide (Lasix) 40 mg IVPUSH NOW ONE Stop: 04/04/19 11:44 Last Admin: 04/04/19 12:37 Dose: 40 mg Furosemide (Lasix) 20 mg IVPUSH NOW ONE Stop: 04/05/19 09:40 Last Admin: 04/05/19 10:15 Dose: 20 mg Sodium Chloride (Normal Saline) 1,000 mls @ 125 mls/hr IV ASDIRECTED ROSALBA Last Admin: 04/03/19 12:21 Dose: 125 mls/hr Pantoprazole Sodium 80 mg/ (Sodium Chloride) 20 mls @ 400 mls/hr IV NOW ONE Stop: 04/03/19 14:43 Last Admin: 04/03/19 15:34 Dose: 400 mls/hr Iopamidol (Isovue Multipack-370 (76%)) 100 ml IVPUSH ONETIME STA Stop: 04/03/19 11:38 Last Admin: 04/03/19 11:51 Dose: 100 ml Potassium Chloride (Klor-Con M20) 40 meq PO ONETIME ONE Stop: 04/05/19 07:01 Last Admin: 04/05/19 08:22 Dose: 40 meq <Macho Gonzalez - Last Filed: 04/10/19 19:41> Discharge Summary - Hospital Course HPI Initial Comments: I have seen and evaluated the patient with the resident. I have discussed findings and treatment plan with the resident. I agree with the assessment and plan in the following note. - Referral to Home Health Primary Care Physician: Des[facility] - Patient Summary/Data Consults: Consultations 04/03/19 14:55 Consult to Physician [CONS] Routine - Patient Data Vitals - Most Recent: Last Vital Signs Temp 35.9 C 04/05/19 16:00 Pulse 88 04/05/19 16:00 Resp 20 04/05/19 16:00 BP 91/56 L 04/05/19 16:00 Pulse Ox 93 L 04/05/19 16:00 Med Orders - Current: Current Medications Discontinued Medications Albuterol/Ipratropium (Duoneb 3.0-0.5 Mg/3 Ml) 3 ml NEB ONETIME ONE Stop: 04/03/19 09:53 Last Admin: 04/03/19 10:07 Dose: 3 ml Albuterol/Ipratropium (Duoneb 3.0-0.5 Mg/3 Ml) 3 ml NEB Q6HRRT PRN PRN Reason: Wheezing Last Admin: 04/04/19 20:45 Dose: 3 ml Carvedilol (Coreg) 12.5 mg PO DAILY PENDING SALE TO [facility] Last Admin: 04/05/19 08:21 Dose: 12.5 mg Diphenhydramine HCl (Benadryl) 25 mg PO ONETIME ONE Stop: 04/03/19 09:52 Last Admin: 04/03/19 10:07 Dose: 25 mg Diphenhydramine HCl (Benadryl) 12.5 mg PO Q8H PRN PRN Reason: Itching Last Admin: 04/05/19 00:05 Dose: 12.5 mg Ferrous Sulfate (Ferrous Sulfate) 325 mg PO BIDMEALS PENDING SALE TO [facility] Furosemide (Lasix) 20 mg IVPUSH NOW ONE Stop: 04/03/19 14:44 Last Admin: 04/03/19 15:35 Dose: 20 mg Furosemide (Lasix) 20 mg IVPUSH ONETIME ONE Stop: 04/03/19 20:16 Last Admin: 04/03/19 20:22 Dose: 20 mg Furosemide (Lasix) 20 mg IVPUSH ONETIME ONE Stop: 04/03/19 23:05 Last Admin: 04/04/19 02:41 Dose: 20 mg Furosemide (Lasix) 40 mg IVPUSH NOW ONE Stop: 04/04/19 11:44 Last Admin: 04/04/19 12:37 Dose: 40 mg Furosemide (Lasix) 20 mg IVPUSH NOW ONE Stop: 04/05/19 09:40 Last Admin: 04/05/19 10:15 Dose: 20 mg Sodium Chloride (Normal Saline) 1,000 mls @ 125 mls/hr IV ASDIRECTED PENDING SALE TO [facility] Last Admin: 04/03/19 12:21 Dose: 125 mls/hr Pantoprazole Sodium 80 mg/ (Sodium Chloride) 20 mls @ 400 mls/hr IV NOW ONE Stop: 04/03/19 14:43 Last Admin: 04/03/19 15:34 Dose: 400 mls/hr Pantoprazole Sodium 40 mg/ (Sodium Chloride) 10 mls @ 300 mls/hr IV Q12H PENDING SALE TO [facility] Last Admin: 04/05/19 03:45 Dose: 300 mls/hr Iopamidol (Isovue Multipack-370 (76%)) 100 ml IVPUSH ONETIME STA Stop: 04/03/19 11:38 Last Admin: 04/03/19 11:51 Dose: 100 ml Losartan Potassium (Cozaar) 25 mg PO BID PENDING SALE TO [facility] Last Admin: 04/05/19 08:20 Dose: 25 mg Ondansetron HCl (Zofran) 4 mg IVPUSH Q4H PRN PRN Reason: Nausea Potassium Chloride (Klor-Con M20) 40 meq PO ONETIME ONE Stop: 04/05/19 07:01 Last Admin: 04/05/19 08:22 Dose: 40 meq Rivaroxaban (Xarelto) 20 mg PO DAILY PENDING SALE TO [facility] Last Admin: 04/05/19 12:15 Dose: 20 mg Sodium Chloride (Saline Flush) 2.5 ml FLUSH ASDIRECTED PRN PRN Reason: Keep Vein Open
[2019-04-05] MEDS ORDERED: Rivaroxaban 10 MG Tab PO SCH (11:15)
--- NOTE | 2019-04-05 15:17 | ECHO ---
EXAM DATE: 04/03/19 PATIENT'S AGE: 83 The echocardiogram report can be seen in this patient's EMR (Electronic Medical Record) in the REPORTS section. The report has also been scanned into PACs. DEL
[2019-04-05 16:17] VITALS: BP 91/56; PULSE 88
[2019-04-05] MEDS ORDERED: Ferrous Sulfate 325 MG Tab PO SCH (17:00)
== END 2019-04-05 16:15 | disposition home or self-care (01) ==
LOC: MW.ED 09:03 → MW.MS 13:57
PROVIDERS: ADMIT Internal Medicine; ATTEND Internal Medicine
DX: K92.2 Gastrointestinal hemorrhage, unspecified (principal); J90 Pleural effusion, not elsewhere classified; I11.0 Hypertensive heart disease with heart failure; I50.9 Heart failure, unspecified; R50.9 Fever, unspecified; I48.11 Longstanding persistent atrial fibrillation; J44.9 Chronic obstructive pulmonary disease, unspecified; D50.0 Iron deficiency anemia secondary to blood loss (chronic); I25.10 Atherosclerotic heart disease of native coronary artery without angina pectoris; E78.00 Pure hypercholesterolemia, unspecified; Z87.891 Personal history of nicotine dependence; Z79.01 Long term (current) use of anticoagulants; Z79.1 Long term (current) use of non-steroidal anti-inflammatories (NSAID); Z79.899 Other long term (current) drug therapy; Z87.11 Personal history of peptic ulcer disease
CPT/HCPCS: 36415; 36430; 71046; 74177; 80048; 80053; 81003; 82728; 83550; 83735; 83880; 84484; 85014; 85018; 85025; 85610; 86850; 86900; 86901; 86920; 86921; 86922; 87804; 93306; 96361; 96374; 96375; 96376; 99285; A9270; C9113; G0378; J1940; J7030; J7050; P9016; Q9967; 96360; 96367; 96372; 99283; J7620-GY

== ENCOUNTER 2020-03-12 14:01 | Observation (INO) | payer MEDICARE, BC, OTHER ==
[2020-03-12] MEDS ORDERED: Sodium Chloride 0.9% 10 ML Syringe FLUSH PRN (14:14)
[2020-03-12] MEDS ORDERED: Sodium Chloride 0.9% 1,000 ML IV ONE ×2 (14:14→17:14)
[2020-03-12] MEDS ORDERED: Sodium Chloride 0.9% 2.5 ML Syringe FLUSH PRN (14:14)
--- NOTE | 2020-03-12 14:25 | PCM.SN.2 ---
- Free Text/Narrative Note: EKG Time 216p, Rate 75 a-fib no JESUS
--- NOTE | 2020-03-12 14:29 | EDM.PDOC ---
ED HPI GENERAL MEDICAL PROBLEM - General Chief Complaint: General Stated [facility] Time Seen by Provider: 03/12/20 14:09 Source of Information: Reports: Patient History Limitations: Reports: No Limitations - History of Present Illness INITIAL COMMENTS - FREE TEXT/NARRATIVE: HISTORY AND PHYSICAL: History of present illness: Patient is an 84-year-old male who presents to the emergency room after some routine lab draw at [facility]. Patient states he was at [facility] for routine lab draw due to anemia/frequent transfusions when he received a call t his afternoon stating he needed to come to the emergency room as his hemoglobin was low. Patient states he is chronically short of breath but has noticed he has felt dizzy over the past 2 days and was "wondering if I was running low again". Patient denies any fever, chills, headache, change in vision, or syncope/ blacking out. Denies any chest pain, back pain or cough. Denies any abdominal pain, nausea, vomiting, diarrhea, constipation or dysuria. Has not noted any blood in urine or stool. Patient has been eating and drinking appropriately. Has medical history of GI bleed, CHF, hypertension, atrial fibrillation (on Xarelto) and COPD. Review of systems: As per history of present illness and below otherwise all systems reviewed and negative. Past medical history: As per history of present illness and as reviewed below otherwise noncontributory. Surgical history: As per history of present illness and as reviewed below otherwise noncontributory. Social history: See social history for further information Family history: As per history of present illness and as reviewed below otherwise noncontributory. Physical exam: General: Well developed and well nourished. Alert and orientated x 3. Nontoxic in appearance and in no acute distress. Vital signs are stable and have been reviewed by me. Nursing notes were reviewed. HEENT: Atraumatic, normocephalic, pupils equal and reactive bilaterally, negative for conjunctival pallor or scleral icterus, mucous membranes moist, TMs normal bilaterally, throat clear, neck supple, nontender, trachea midline. No drooling or trismus noted. No meningeal signs. No hot potato voice noted. Lungs: Clear to auscultation, breath sounds equal bilaterally, chest nontender. Normal work of breathing, no accessory muscles used. Heart: S1S2, regular rate and rhythm without overt murmur Abdomen: Soft, nondistended, nontender. Negative for masses or costovertebral tenderness. Pelvis: Stable nontender. Rectal: This was consented and a contact lens manufacturer at the bedside. No faraz blood noted. Unable to get much stool for Occult Card; what was obtained was negative. Good rectal tone. No internal or external hemorrhoids noted. Skin: Intact, warm, dry. No lesions or rashes noted. Hematologic: No petechiae or purpra. Mucosa appropriate color and normal nail bed color and refill. Extremities: Atraumatic, moves all extremities per self without difficulty or deficits, negative for cords or calf pain. Neurovascular unremarkable. Neuro: Awake, alert, oriented. Cranial nerves II through XII unremarkable. Cerebellum unremarkable. Motor and sensory unremarkable throughout. Exam nonfocal. Psychiatric: Mood and affect are appropriate. Normal thought process. Answering questions appropriately. Notes: *This patient was seen and evaluated during the 2019 SARS-CoV-2 novel coronavirus pandemic period. Community viral transmission is ongoing at time of this encounter and the emergency department is operating under pandemic response procedures. Chest x-ray shows an enlarged heart. Patchy opacities bilaterally worsened since the prior study. Main differential considerations are worsening of underlying interstitial lung disease, interstitial edema or an inflammatory process such as atypical pneumonia. Lab shows Hem 6.0 hematocrit 21.3, will transfuse RBCs. Potassium elevated at 5.5, BUN and creatinine 43/1.4, BNP 356. Dr Fairbanks was consulted on this case. He is agreeable to keeping this patient for further care and management. Patient is aware and agreeable for overnight stay. Telemetry has been applied. His vital signs remained stable. We will continue to monitor Diagnostics: CBC, CMP, INR, EKG, CXR, Type/Screen, Cross Match 2 units Therapeutics: IV fluids, Blood Impression: Anemia requiring blood transfusion History of atrial fibrillation Hyperkalemia Plan: To Med/Surg with telemetry for blood products. Definitive disposition and diagnosis as appropriate pending reevaluation and review of above. - Related Data Allergies Allergy/AdvReac Type Severity Reaction Status Date / Time No Known Allergies Allergy Verified 03/12/20 14:25 Home Meds: Home Meds Furosemide 60 mg PO DAILY 04/03/19 [History] Losartan [Cozaar] 25 mg PO BID 04/03/19 [History] Rivaroxaban [Xarelto] 20 mg PO DAILY 04/03/19 [History] carvediloL [Coreg] 12.5 mg PO DAILY 04/03/19 [History] Ferrous Sulfate 325 mg PO BIDMEALS 14 Days #28 tablet 04/05/19 [Rx] Pantoprazole Sodium [Protonix] 40 mg PO BID 14 Days #28 tablet. 04/05/19 [Rx] Past Medical History Cardiovascular History: Reports: Afib, CAD, Heart Failure, High Cholesterol, Hypertension Other Cardiovascular History: PT uncertain of exact cardiac history Respiratory History: Reports: COPD Other Respiratory History: 50 yr history of smoking, QUIT 11 yrs Ago, do feel short of breath once in awhile Other Gastrointestinal History: Occasional heartburn treat with TUMS/Rolaids Other Genitourinary History: reported kidney issue but unk exact dx Other Musculoskeletal History: Fractured hip as Young boy - Left In hospital traction, Back injury in Oilfield work, have Low back pain Other Dermatologic History: Skin pigment changes over my arms/face - Infectious Disease History Infectious Disease History: Reports: Measles - Past Surgical History HEENT Surgical History: Reports: Tonsillectomy Other HEENT Surgeries/Procedures: Bilateral cataract with Lens implants GI Surgical History: Reports: Appendectomy Social & Family History - Family History Family Medical History: No Pertinent Family History - Caffeine Use Caffeine Use: Reports: Coffee - Living Situation & Occupation Living situation: Reports: Occupation: Retired ED ROS GENERAL - Review of Systems Review Of Systems: Comprehensive ROS is negative, except as noted in HPI. ED EXAM, GENERAL - Physical Exam Exam: See Below (See dictation) Course - Vital Signs Last Recorded V/S: Last Vital Signs Temp 98.1 F 03/12/20 14:25 Pulse 68 03/12/20 14:25 Resp 18 03/12/20 14:25 BP 96/54 L 03/12/20 14:25 Pulse Ox 100 03/12/20 14:25 - Orders/Labs/Meds Orders: Active Orders 24 hr Category Date Time Status Admission Status [Patient Status] [ADT] Stat ADT 03/12/20 15:55 Active Cardiac Monitoring [RC] . DIRECTED Care 03/12/20 15:55 Active EKG Documentation Completion [RC] STAT Care 03/12/20 14:14 Active Verify Patient Consent Obtain [RC] ASDIRECTED Care 03/12/20 14:54 Active RED BLOOD CELLS LP [BBK] Stat Lab 03/12/20 14:25 Results TYPE AND SCREEN [BBK] Stat Lab 03/12/20 14:25 Results Sodium Chloride 0.9% [Normal Saline] 1,000 ml Med 03/12/20 14:14 Active IV STAT Sodium Chloride 0.9% [Saline Flush] Med 03/12/20 14:14 Active 10 ml FLUSH ASDIRECTED PRN Sodium Chloride 0.9% [Saline Flush] Med 03/12/20 14:14 Active 2.5 ml FLUSH ASDIRECTED PRN Saline Lock Insert [OM.PC] Stat Oth 03/12/20 14:14 Ordered Transfuse Red Blood Cells [COMM] Stat Oth 03/12/20 14:13 Ordered Medication Orders Sodium Chloride (Normal Saline) 1,000 mls @ 200 mls/hr IV STAT ONE Stop: 03/12/20 19:13 Last Admin: 03/12/20 14:27 Dose: 200 mls/hr Documented by: MURDNIC Sodium Chloride (Saline Flush) 10 ml FLUSH ASDIRECTED PRN PRN Reason: Keep Vein Open Last Admin: 03/12/20 14:27 Dose: 10 ml Documented by: MURDNIC Sodium Chloride (Saline Flush) 2.5 ml FLUSH ASDIRECTED PRN PRN Reason: Keep Vein Open Last Admin: 03/12/20 14:27 Dose: 2.5 ml Documented by: MURDNIC Labs: Laboratory Tests 03/12/20 03/12/20 03/12/20 Range/Units 14:18 14:18 14:18 WBC 6.05 (4.0-11.0) K/uL RBC 2.47 L (4.50-5.90) M/uL Hgb 6.0 L (13.0-17.0) g/dL Hct 21.3 L (38.0-50.0) % MCV 86.2 (80.0-98.0) fL MCH 24.3 L (27.0-32.0) pg MCHC 28.2 L (31.0-37.0) g/dL RDW Std Deviation 54.3 (28.0-62.0) fl RDW Coeff of Dayanna 17 H (11.0-15.0) % Plt Count 154 (150-400) K/uL MPV 10.40 (7.40-12.00) fL Neut % (Auto) 74.6 (48.0-80.0) % Lymph % (Auto) 7.3 L (16.0-40.0) % [place] % (Auto) 13.6 (0.0-15.0) % Eos % (Auto) 3.8 (0.0-7.0) % Baso % (Auto) 0.7 (0.0-1.5) % Neut # (Auto) 4.5 (1.4-5.7) K/uL Lymph # (Auto) 0.4 L (0.6-2.4) K/uL [place] # (Auto) 0.8 (0.0-0.8) K/uL Eos # (Auto) 0.2 (0.0-0.7) K/uL Baso # (Auto) 0.0 (0.0-0.1) K/uL Nucleated RBC % 0.0 /100WBC Nucleated RBCs # 0 K/uL INR 1.71 Sodium 142 (136-148) mmol/L Potassium 5.5 H (3.5-5.1) mmol/L Chloride 106 (98-107) mmol/L Carbon Dioxide 27.9 (21.0-32.0) mmol/L BUN 43 H (7.0-18.0) mg/dL Creatinine 1.4 H (0.8-1.3) mg/dL Est Cr Clr Drug Dosing 41.57 mL/min Estimated GFR (MDRD) 48.1 ml/min Glucose 137 H (74-106) mg/dL Calcium 8.5 (8.5-10.1) mg/dL Total Bilirubin 0.3 (0.2-1.0) mg/dL AST 17 (15-37) IU/L ALT 25 (14-63) IU/L Alkaline Phosphatase 67 (46-116) U/L B-Natriuretic Peptide (<100) PG/ML Total Protein 6.4 (6.4-8.2) g/dL Albumin 3.5 (3.4-5.0) g/dL Globulin 2.9 (2.6-4.0) g/dL Albumin/Globulin Ratio 1.2 (0.9-1.6) Urine Color Urine Appearance Urine pH (5.0-8.0) Ur Specific [place] (1.001-1.035) Urine Protein (NEGATIVE) mg/dL Urine Glucose (UA) (NEGATIVE) mg/dL Urine Ketones (NEGATIVE) mg/dL Urine Occult Blood (NEGATIVE) Urine Nitrite (NEGATIVE) Urine Bilirubin (NEGATIVE) Urine Urobilinogen (<2.0) EU/dL Ur Leukocyte Esterase (NEGATIVE) SARS-CoV-2 RNA (ANNALISA) (NEGATIVE) Blood Type Antibody Screen Crossmatch 03/12/20 03/12/20 03/12/20 Range/Units 14:18 14:25 14:48 WBC (4.0-11.0) K/uL RBC (4.50-5.90) M/uL Hgb (13.0-17.0) g/dL Hct (38.0-50.0) % MCV (80.0-98.0) fL MCH (27.0-32.0) pg MCHC (31.0-37.0) g/dL RDW Std Deviation (28.0-62.0) fl RDW Coeff of Dayanna (11.0-15.0) % Plt Count (150-400) K/uL MPV (7.40-12.00) fL Neut % (Auto) (48.0-80.0) % Lymph % (Auto) (16.0-40.0) % [place] % (Auto) (0.0-15.0) % Eos % (Auto) (0.0-7.0) % Baso % (Auto) (0.0-1.5) % Neut # (Auto) (1.4-5.7) K/uL Lymph # (Auto) (0.6-2.4) K/uL [place] # (Auto) (0.0-0.8) K/uL Eos # (Auto) (0.0-0.7) K/uL Baso # (Auto) (0.0-0.1) K/uL Nucleated RBC % /100WBC Nucleated RBCs # K/uL INR Sodium (136-148) mmol/L Potassium (3.5-5.1) mmol/L Chloride (98-107) mmol/L Carbon Dioxide (21.0-32.0) mmol/L BUN (7.0-18.0) mg/dL Creatinine (0.8-1.3) mg/dL Est Cr Clr Drug Dosing mL/min Estimated GFR (MDRD) ml/min Glucose (74-106) mg/dL Calcium (8.5-10.1) mg/dL Total Bilirubin (0.2-1.0) mg/dL AST (15-37) IU/L ALT (14-63) IU/L Alkaline Phosphatase (46-116) U/L B-Natriuretic Peptide 356 H (<100) PG/ML Total Protein (6.4-8.2) g/dL Albumin (3.4-5.0) g/dL Globulin (2.6-4.0) g/dL Albumin/Globulin Ratio (0.9-1.6) Urine Color Urine Appearance Urine pH (5.0-8.0) Ur Specific [place] (1.001-1.035) Urine Protein (NEGATIVE) mg/dL Urine Glucose (UA) (NEGATIVE) mg/dL Urine Ketones (NEGATIVE) mg/dL Urine Occult Blood (NEGATIVE) Urine Nitrite (NEGATIVE) Urine Bilirubin (NEGATIVE) Urine Urobilinogen (<2.0) EU/dL Ur Leukocyte Esterase (NEGATIVE) SARS-CoV-2 RNA (ANNALISA) NEGATIVE (NEGATIVE) Blood Type A NEGATIVE Antibody Screen NEGATIVE Crossmatch See Detail 03/12/20 Range/Units 15:17 WBC (4.0-11.0) K/uL RBC (4.50-5.90) M/uL Hgb (13.0-17.0) g/dL Hct (38.0-50.0) % MCV (80.0-98.0) fL MCH (27.0-32.0) pg MCHC (31.0-37.0) g/dL RDW Std Deviation (28.0-62.0) fl RDW Coeff of Dayanna (11.0-15.0) % Plt Count (150-400) K/uL MPV (7.40-12.00) fL Neut % (Auto) (48.0-80.0) % Lymph % (Auto) (16.0-40.0) % [place] % (Auto) (0.0-15.0) % Eos % (Auto) (0.0-7.0) % Baso % (Auto) (0.0-1.5) % Neut # (Auto) (1.4-5.7) K/uL Lymph # (Auto) (0.6-2.4) K/uL [place] # (Auto) (0.0-0.8) K/uL Eos # (Auto) (0.0-0.7) K/uL Baso # (Auto) (0.0-0.1) K/uL Nucleated RBC % /100WBC Nucleated RBCs # K/uL INR Sodium (136-148) mmol/L Potassium (3.5-5.1) mmol/L Chloride (98-107) mmol/L Carbon Dioxide (21.0-32.0) mmol/L BUN (7.0-18.0) mg/dL Creatinine (0.8-1.3) mg/dL Est Cr Clr Drug Dosing mL/min Estimated GFR (MDRD) ml/min Glucose (74-106) mg/dL Calcium (8.5-10.1) mg/dL Total Bilirubin (0.2-1.0) mg/dL AST (15-37) IU/L ALT (14-63) IU/L Alkaline Phosphatase (46-116) U/L B-Natriuretic Peptide (<100) PG/ML Total Protein (6.4-8.2) g/dL Albumin (3.4-5.0) g/dL Globulin (2.6-4.0) g/dL Albumin/Globulin Ratio (0.9-1.6) Urine Color YELLOW Urine Appearance CLEAR Urine pH 5.5 (5.0-8.0) Ur Specific [place] 1.020 (1.001-1.035) Urine Protein NEGATIVE (NEGATIVE) mg/dL Urine Glucose (UA) NEGATIVE (NEGATIVE) mg/dL Urine Ketones NEGATIVE (NEGATIVE) mg/dL Urine Occult Blood NEGATIVE (NEGATIVE) Urine Nitrite NEGATIVE (NEGATIVE) Urine Bilirubin NEGATIVE (NEGATIVE) Urine Urobilinogen 0.2 (<2.0) EU/dL Ur Leukocyte Esterase NEGATIVE (NEGATIVE) SARS-CoV-2 RNA (ANNALISA) (NEGATIVE) Blood Type Antibody Screen Crossmatch Meds: Medications Generic Name Dose Route Start Last Admin Trade Name Freq PRN Reason Stop Dose Admin Sodium Chloride 1,000 mls @ 200 mls/hr 03/12/20 14:14 03/12/20 14:27 Normal Saline IV 03/12/20 19:13 200 mls/hr STAT ONE Administration Sodium Chloride 10 ml 03/12/20 14:14 03/12/20 14:27 Saline Flush FLUSH 10 ml ASDIRECTED PRN Administration Keep Vein Open Sodium Chloride 2.5 ml 03/12/20 14:14 03/12/20 14:27 Saline Flush FLUSH 2.5 ml ASDIRECTED PRN Administration Keep Vein Open Departure - Departure Time of Disposition: 16:18 Disposition: Refer to Observation Clinical Impression: History of atrial fibrillation, Hyperkalemia Anemia Qualifiers: Anemia type: unspecified type Qualified Code(s): D64.9 - Anemia, unspecified - Discharge Information Referrals: Levi Sandoval MD [Primary Care Provider] - Forms: ED Department Discharge Sepsis Event Note (ED) - Focused Exam Vital Signs: Vital Signs Temp Pulse Resp BP Pulse Ox 03/12/20 14:25 98.1 F 68 18 96/54 L 100 - My Orders Last 24 Hours: My Active Orders 03/12/20 14:13 Transfuse Red Blood Cells [COMM] Stat 03/12/20 14:14 EKG Documentation Completion [RC] STAT Sodium Chloride 0.9% [Normal Saline] 1,000 ml IV STAT Sodium Chloride 0.9% [Saline Flush] 10 ml FLUSH ASDIRECTED PRN Sodium Chloride 0.9% [Saline Flush] 2.5 ml FLUSH ASDIRECTED PRN Saline Lock Insert [OM.PC] Stat 03/12/20 14:25 RED BLOOD CELLS LP [BBK] Stat TYPE AND SCREEN [BBK] Stat 03/12/20 14:54 Verify Patient Consent Obtain [RC] ASDIRECTED 03/12/20 15:55 Admission Status [Patient Status] [ADT] Stat Cardiac Monitoring [RC] . DIRECTED - Assessment/Plan Last 24 Hours: My Active Orders 03/12/20 14:13 Transfuse Red Blood Cells [COMM] Stat 03/12/20 14:14 EKG Documentation Completion [RC] STAT Sodium Chloride 0.9% [Normal Saline] 1,000 ml IV STAT Sodium Chloride 0.9% [Saline Flush] 10 ml FLUSH ASDIRECTED PRN Sodium Chloride 0.9% [Saline Flush] 2.5 ml FLUSH ASDIRECTED PRN Saline Lock Insert [OM.PC] Stat 03/12/20 14:25 RED BLOOD CELLS LP [BBK] Stat TYPE AND SCREEN [BBK] Stat 03/12/20 14:54 Verify Patient Consent Obtain [RC] ASDIRECTED 03/12/20 15:55 Admission Status [Patient Status] [ADT] Stat Cardiac Monitoring [RC] . DIRECTED
[2020-03-12 14:53] LABS: CARBON DIOXIDE,CO2 27.9 mmol/L (21.0-32.0); POTASSIUM,K 5.5 mmol/L (3.5-5.1)
--- NOTE | 2020-03-12 14:59 | CR ---
INDICATION: Dyspnea COMPARISON: April 03, 2019 TECHNIQUE: Single-view portable chest radiograph FINDINGS: TUBES AND LINES: None. HEART AND MEDIASTINUM: Enlarged heart. LUNGS AND PLEURAL SPACES: Patchy opacities bilaterally primarily peripheral. These were present previously but they appear somewhat worsened especially on the left.This could be due to worsening underlying interstitial lung disease, interstitial edema or an inflammatory process including atypical pneumonia. OSSEOUS STRUCTURES: Age-appropriate appearance. No acute focal finding. IMPRESSION: Enlarged heart. Patchy opacities bilaterally worsened since the prior study. Main differential considerations are worsening of underlying interstitial lung disease, interstitial edema or an inflammatory process such as atypical pneumonia. Dictated by Robert Echevarria MD @ Mar 12 2020 2:55PM Signed by Dr. Robert Echevarria @ Mar 12 2020 2:58PM
[2020-03-12] MEDS ORDERED: Succinylcholine 200 MG/10 ML MDV IV STA (17:13)
[2020-03-12] MEDS ORDERED: propofoL 100 ML IV SCH (17:15)
[2020-03-12] MEDS ORDERED: Ondansetron 4 MG/2 ML SDV IVPUSH PRN (18:25)
[2020-03-12] MEDS ORDERED: Acetaminophen 325 MG Tab PO PRN (18:25)
--- NOTE | 2020-03-12 19:35 | PCM.HP.2 ---
H&P History of Present Illness - General Date of Service: 03/12/20 Admit Problem/Dx: Admission Diagnosis/Problem Admission Diagnosis/Problem Anemia Source of Information: Patient - History of Present Illness Initial Comments - Free Text/Narative: Patient is a sheila 84-year-old gentleman with a past medical history of CHF, hypertension, A. fib on Xarelto and COPD was sent directly from [facility] where he was seen for routine blood draws for previous anemias and transfusions. Stated he is had dizziness for the last 3 days, and has felt similar prior to requiring transfusions in the past. Denied any fever, chills, headache, visual changes or any syncope, no blood in urine, stools or sputum. ER course: CBC, CMP, BNP, UA, Covid, INR, chest x-ray Therapeutic measures: 2 boluses of LR, 2 units packed red blood cell transfusion - Related Data Allergies/Adverse Reactions: Allergies Allergy/AdvReac Type Severity Reaction Status Date / Time No Known Allergies Allergy Verified 03/12/20 17:08 Home Medications: Home Meds Furosemide 60 mg PO DAILY 04/03/19 [History] Losartan [Cozaar] 25 mg PO BID 04/03/19 [History] Rivaroxaban [Xarelto] 20 mg PO DAILY 04/03/19 [History] carvediloL [Coreg] 12.5 mg PO DAILY 04/03/19 [History] Ferrous Sulfate 325 mg PO BIDMEALS 14 Days #28 tablet 04/05/19 [Rx] Pantoprazole Sodium [Protonix] 40 mg PO BID 14 Days #28 tablet. 04/05/19 [Rx] Past Medical History Cardiovascular History: Reports: Afib, CAD, Heart Failure, High Cholesterol, Hypertension Other Cardiovascular History: PT uncertain of exact cardiac history Respiratory History: Reports: COPD Other Respiratory History: 50 yr history of smoking, QUIT 11 yrs Ago, do feel short of breath once in awhile Other Gastrointestinal History: Occasional heartburn treat with TUMS/Rolaids Other Genitourinary History: reported kidney issue but unk exact dx Other Musculoskeletal History: Fractured hip as Young boy - Left In hospital traction, Back injury in Oilfield work, have Low back pain Other Dermatologic History: Skin pigment changes over my arms/face - Infectious Disease History Infectious Disease History: Reports: Chicken Pox, Measles, Mumps, Shingles - Past Surgical History HEENT Surgical History: Reports: Tonsillectomy Other HEENT Surgeries/Procedures: Bilateral cataract with Lens implants GI Surgical History: Reports: Appendectomy Social & Family History - Family History Family Medical History: No Pertinent Family History - Tobacco Use Tobacco Use Status *Q: Former Tobacco User Years of Tobacco use: 30 Used Tobacco, but Quit: Yes Month/Year Tobacco Last Used: 11 years ago roughly - Caffeine Use Caffeine Use: Reports: Coffee - Recreational Drug Use Recreational Drug Use: No - Living Situation & Occupation Living situation: Reports: Occupation: Retired H&P Review of Systems - Review of Systems: Review Of Systems: See Below General: Reports: Malaise HEENT: Reports: No Symptoms Pulmonary: Reports: No Symptoms Cardiovascular: Reports: No Symptoms. Denies: Chest Pain, Palpitations, Dyspnea on Exertion, Lightheadedness, Syncope Gastrointestinal: Reports: No Symptoms. Denies: Abdominal Pain, Black Stool, Bloody Stool, Hematemesis, Hematochezia, Melena Genitourinary: Reports: No Symptoms. Denies: Hematuria Musculoskeletal: Reports: No Symptoms Skin: Reports: No Symptoms. Denies: Bruising Psychiatric: Reports: No Symptoms. Denies: Confusion Neurological: Reports: Dizziness, Numbness, Tingling, Weakness. Denies: Confusion, Headache, Tremors Hematologic/Lymphatic: Reports: Anemia Immunologic: Reports: No Symptoms Exam - Exam Exam: See Below - Vital Signs Vital Signs: Last Vital Signs Temp 97.5 F 03/12/20 18:10 Pulse 76 03/12/20 18:10 Resp 15 03/12/20 18:10 BP 110/54 L 03/12/20 18:10 Pulse Ox 100 03/12/20 18:10 Weight: 221 lb 8 oz - Exam Quality Assessment: DVT Prophylaxis (On home dose of Xarelto for known A. fib) General: Alert, Oriented HEENT: Conjunctiva Clear, EACs Clear, EOMI, Hearing Intact, Mucosa Moist & [place], Normal Nasal Septum, PERRLA Neck: Supple Lungs: Clear to Auscultation, Normal Respiratory Effort Cardiovascular: Regular Rate, Regular Rhythm GI/Abdominal Exam: Normal Bowel Sounds, Soft, Non-Tender, No Organomegaly, No Distention, No Abnormal Bruit, No Mass Rectal (Males) Exam: Bloody Stool Extremities: Normal Inspection, Normal Range of Motion, Non-Tender, No Pedal Edema, Normal Capillary Refill Peripheral Pulses: 2+: Radial (L), Radial (R), Dorsalis Pedis (L), Dorsalis Pedis (R) Skin: Warm, Dry, Intact Neurological: Cranial Nerves Intact Neuro Extensive - Mental Status: Alert, Oriented x3, Normal Mood/Affect, Normal Cognition, Memory Intact Neuro Extensive - Motor, Sensory, Reflexes: CN II-XII Intact, Normal Gait, Normal Reflexes DTR: 2+: Tricep (L), Tricep (R), Achilles (L), Achilles (R) Psychiatric: Alert, Normal Affect, Normal Mood - Patient Data Lab Results Last 24 hrs: Laboratory Results - last 24 hr 03/12/20 03/12/20 03/12/20 Range/Units 14:18 14:18 14:18 WBC 6.05 (4.0-11.0) K/uL RBC 2.47 L (4.50-5.90) M/uL Hgb 6.0 L (13.0-17.0) g/dL Hct 21.3 L (38.0-50.0) % MCV 86.2 (80.0-98.0) fL MCH 24.3 L (27.0-32.0) pg MCHC 28.2 L (31.0-37.0) g/dL RDW Std Deviation 54.3 (28.0-62.0) fl RDW Coeff of Dayanna 17 H (11.0-15.0) % Plt Count 154 (150-400) K/uL MPV 10.40 (7.40-12.00) fL Neut % (Auto) 74.6 (48.0-80.0) % Lymph % (Auto) 7.3 L (16.0-40.0) % [place] % (Auto) 13.6 (0.0-15.0) % Eos % (Auto) 3.8 (0.0-7.0) % Baso % (Auto) 0.7 (0.0-1.5) % Neut # (Auto) 4.5 (1.4-5.7) K/uL Lymph # (Auto) 0.4 L (0.6-2.4) K/uL Cabell # (Auto) 0.8 (0.0-0.8) K/uL Eos # (Auto) 0.2 (0.0-0.7) K/uL Baso # (Auto) 0.0 (0.0-0.1) K/uL Nucleated RBC % 0.0 /100WBC Nucleated RBCs # 0 K/uL INR 1.71 Sodium 142 (136-148) mmol/L Potassium 5.5 H (3.5-5.1) mmol/L Chloride 106 (98-107) mmol/L Carbon Dioxide 27.9 (21.0-32.0) mmol/L BUN 43 H (7.0-18.0) mg/dL Creatinine 1.4 H (0.8-1.3) mg/dL Est Cr Clr Drug Dosing 41.57 mL/min Estimated GFR (MDRD) 48.1 ml/min Glucose 137 H (74-106) mg/dL Calcium 8.5 (8.5-10.1) mg/dL Total Bilirubin 0.3 (0.2-1.0) mg/dL AST 17 (15-37) IU/L ALT 25 (14-63) IU/L Alkaline Phosphatase 67 (46-116) U/L B-Natriuretic Peptide (<100) PG/ML Total Protein 6.4 (6.4-8.2) g/dL Albumin 3.5 (3.4-5.0) g/dL Globulin 2.9 (2.6-4.0) g/dL Albumin/Globulin Ratio 1.2 (0.9-1.6) Urine Color Urine Appearance Urine pH (5.0-8.0) Ur Specific Ramona (1.001-1.035) Urine Protein (NEGATIVE) mg/dL Urine Glucose (UA) (NEGATIVE) mg/dL Urine Ketones (NEGATIVE) mg/dL Urine Occult Blood (NEGATIVE) Urine Nitrite (NEGATIVE) Urine Bilirubin (NEGATIVE) Urine Urobilinogen (<2.0) EU/dL Ur Leukocyte Esterase (NEGATIVE) SARS-CoV-2 RNA (ANNALISA) (NEGATIVE) Blood Type Antibody Screen Crossmatch 03/12/20 03/12/20 03/12/20 Range/Units 14:18 14:25 14:48 WBC (4.0-11.0) K/uL RBC (4.50-5.90) M/uL Hgb (13.0-17.0) g/dL Hct (38.0-50.0) % MCV (80.0-98.0) fL MCH (27.0-32.0) pg MCHC (31.0-37.0) g/dL RDW Std Deviation (28.0-62.0) fl RDW Coeff of Dayanna (11.0-15.0) % Plt Count (150-400) K/uL MPV (7.40-12.00) fL Neut % (Auto) (48.0-80.0) % Lymph % (Auto) (16.0-40.0) % Cabell % (Auto) (0.0-15.0) % Eos % (Auto) (0.0-7.0) % Baso % (Auto) (0.0-1.5) % Neut # (Auto) (1.4-5.7) K/uL Lymph # (Auto) (0.6-2.4) K/uL Cabell # (Auto) (0.0-0.8) K/uL Eos # (Auto) (0.0-0.7) K/uL Baso # (Auto) (0.0-0.1) K/uL Nucleated RBC % /100WBC Nucleated RBCs # K/uL INR Sodium (136-148) mmol/L Potassium (3.5-5.1) mmol/L Chloride (98-107) mmol/L Carbon Dioxide (21.0-32.0) mmol/L BUN (7.0-18.0) mg/dL Creatinine (0.8-1.3) mg/dL Est Cr Clr Drug Dosing mL/min Estimated GFR (MDRD) ml/min Glucose (74-106) mg/dL Calcium (8.5-10.1) mg/dL Total Bilirubin (0.2-1.0) mg/dL AST (15-37) IU/L ALT (14-63) IU/L Alkaline Phosphatase (46-116) U/L B-Natriuretic Peptide 356 H (<100) PG/ML Total Protein (6.4-8.2) g/dL Albumin (3.4-5.0) g/dL Globulin (2.6-4.0) g/dL Albumin/Globulin Ratio (0.9-1.6) Urine Color Urine Appearance Urine pH (5.0-8.0) Ur Specific Ramona (1.001-1.035) Urine Protein (NEGATIVE) mg/dL Urine Glucose (UA) (NEGATIVE) mg/dL Urine Ketones (NEGATIVE) mg/dL Urine Occult Blood (NEGATIVE) Urine Nitrite (NEGATIVE) Urine Bilirubin (NEGATIVE) Urine Urobilinogen (<2.0) EU/dL Ur Leukocyte Esterase (NEGATIVE) SARS-CoV-2 RNA (ANANLISA) NEGATIVE (NEGATIVE) Blood Type A NEGATIVE Antibody Screen NEGATIVE Crossmatch See Detail 03/12/20 Range/Units 15:17 WBC (4.0-11.0) K/uL RBC (4.50-5.90) M/uL Hgb (13.0-17.0) g/dL Hct (38.0-50.0) % MCV (80.0-98.0) fL MCH (27.0-32.0) pg MCHC (31.0-37.0) g/dL RDW Std Deviation (28.0-62.0) fl RDW Coeff of Dayanna (11.0-15.0) % Plt Count (150-400) K/uL MPV (7.40-12.00) fL Neut % (Auto) (48.0-80.0) % Lymph % (Auto) (16.0-40.0) % Cabell % (Auto) (0.0-15.0) % Eos % (Auto) (0.0-7.0) % Baso % (Auto) (0.0-1.5) % Neut # (Auto) (1.4-5.7) K/uL Lymph # (Auto) (0.6-2.4) K/uL Cabell # (Auto) (0.0-0.8) K/uL Eos # (Auto) (0.0-0.7) K/uL Baso # (Auto) (0.0-0.1) K/uL Nucleated RBC % /100WBC Nucleated RBCs # K/uL INR Sodium (136-148) mmol/L Potassium (3.5-5.1) mmol/L Chloride (98-107) mmol/L Carbon Dioxide (21.0-32.0) mmol/L BUN (7.0-18.0) mg/dL Creatinine (0.8-1.3) mg/dL Est Cr Clr Drug Dosing mL/min Estimated GFR (MDRD) ml/min Glucose (74-106) mg/dL Calcium (8.5-10.1) mg/dL Total Bilirubin (0.2-1.0) mg/dL AST (15-37) IU/L ALT (14-63) IU/L Alkaline Phosphatase (46-116) U/L B-Natriuretic Peptide (<100) PG/ML Total Protein (6.4-8.2) g/dL Albumin (3.4-5.0) g/dL Globulin (2.6-4.0) g/dL Albumin/Globulin Ratio (0.9-1.6) Urine Color YELLOW Urine Appearance CLEAR Urine pH 5.5 (5.0-8.0) Ur Specific Ramona 1.020 (1.001-1.035) Urine Protein NEGATIVE (NEGATIVE) mg/dL Urine Glucose (UA) NEGATIVE (NEGATIVE) mg/dL Urine Ketones NEGATIVE (NEGATIVE) mg/dL Urine Occult Blood NEGATIVE (NEGATIVE) Urine Nitrite NEGATIVE (NEGATIVE) Urine Bilirubin NEGATIVE (NEGATIVE) Urine Urobilinogen 0.2 (<2.0) EU/dL Ur Leukocyte Esterase NEGATIVE (NEGATIVE) SARS-CoV-2 RNA (ANNALISA) (NEGATIVE) Blood Type Antibody Screen Crossmatch Result Diagrams: 03/12/20 14:18 03/12/20 14:18 Sepsis Event Note - Evaluation Sepsis Screening Result: No Definite Risk - Focused Exam Vital Signs: Vital Signs Temp Temp Pulse Resp BP Pulse Ox 03/12/20 18:10 97.5 F 76 15 110/54 L 100 03/12/20 17:56 97.3 F 73 16 106/56 L 100 03/12/20 16:48 97.5 F 78 16 115/64 100 03/12/20 16:25 78 16 107/69 99 03/12/20 16:10 76 16 101/64 99 03/12/20 15:55 79 107/62 03/12/20 15:41 61 91/51 L 03/12/20 15:26 71 104/58 L 03/12/20 15:10 76 94/58 L 03/12/20 14:56 58 L 88/55 L 03/12/20 14:41 64 98/54 L 03/12/20 14:27 71 96/54 L 03/12/20 14:25 98.1 F 68 18 96/54 L 100 - Problem List (1) Anemia SNOMED Code(s): 156460730 ICD Code: D64.9 - ANEMIA, UNSPECIFIED Status: Acute Current Visit: Yes Qualifiers: Anemia type: unspecified type Qualified Code(s): D64.9 - Anemia, unspecified (2) History of atrial fibrillation SNOMED Code(s): 626690028 ICD Code: Z86.79 - PERSONAL HISTORY OF OTHER DISEASES OF THE CIRCULATORY SYSTEM Status: Acute Current Visit: Yes (3) Hyperkalemia SNOMED Code(s): 00891897 ICD Code: E87.5 - HYPERKALEMIA Status: Acute Current Visit: Yes Problem List Initiated/Reviewed/Updated: Yes Orders Last 24hrs: Active Orders 24 hr Category Date Time Status Admission Status [Patient Status] [ADT] Stat ADT 03/12/20 15:55 Active Antiembolic Devices [RC] PER UNIT ROUTINE Care 03/12/20 18:28 Active Cardiac Monitoring [RC] . DIRECTED Care 03/12/20 15:55 Active Cardiac Monitoring [RC] CONTINUOUS Care 03/12/20 18:27 Active Communication Order [RC] ROUTINE Care 03/12/20 17:45 Active Oxygen Therapy [RC] PRN Care 03/12/20 18:25 Active Telemetry Monitoring [Cardiac Monitoring] [RC] Q8H Care 03/12/20 16:13 Active Up With Assistance [RC] ASDIRECTED Care 03/12/20 18:25 Active VTE/DVT Education [RC] PER UNIT ROUTINE Care 03/12/20 18:25 Active Verify Patient Consent Obtain [RC] ASDIRECTED Care 03/12/20 14:54 Active Vital Signs [RC] Q4H Care 03/12/20 18:25 Active Heart Healthy Diet [DIET] Diet 03/12/20 Dinner Active Heart Healthy Diet [DIET] Diet 03/12/20 Dinner Active BILIRUBIN DIRECT/INDIRECT [CHEM] Routine Lab 03/12/20 18:32 Ordered CBC WITH AUTO DIFF [HEME] AM Lab 03/13/20 05:11 Ordered CBC WITH AUTO DIFF [HEME] AM Lab 03/14/20 05:11 Ordered CBC WITH AUTO DIFF [HEME] AM Lab 03/15/20 05:11 Ordered CBC WITH AUTO DIFF [HEME] AM Lab 03/16/20 05:11 Ordered COMPREHENSIVE METABOLIC PN,CMP [CHEM] AM Lab 03/13/20 05:11 Ordered COMPREHENSIVE METABOLIC PN,CMP [CHEM] AM Lab 03/14/20 05:11 Ordered COMPREHENSIVE METABOLIC PN,CMP [CHEM] AM Lab 03/15/20 05:11 Ordered COMPREHENSIVE METABOLIC PN,CMP [CHEM] AM Lab 03/16/20 05:11 Ordered COMPREHENSIVE METABOLIC PN,CMP [CHEM] AM Lab 03/17/20 05:11 Ordered HAPTOGLOBIN [REF] Routine Lab 03/12/20 18:33 Ordered HEMOGLOBIN/HEMATOCRIT,HH [HEME] Q6H Lab 03/12/20 18:31 Ordered HEMOGLOBIN/HEMATOCRIT,HH [HEME] Q6H Lab 03/13/20 00:31 Ordered HEMOGLOBIN/HEMATOCRIT,HH [HEME] Q6H Lab 03/13/20 06:31 Ordered HEMOGLOBIN/HEMATOCRIT,HH [HEME] Q6H Lab 03/13/20 12:31 Ordered HEMOGLOBIN/HEMATOCRIT,HH [HEME] Q6H Lab 03/13/20 18:31 Ordered LACTATE DEHYDROGENASE,LDH [CHEM] Routine Lab 03/12/20 18:32 Ordered PERIPH BLOOD SMEAR PATHOLOGIST [HEME] Routine Lab 03/12/20 18:32 Ordered RED BLOOD CELLS LP [BBK] Stat Lab 03/12/20 14:25 Results RETICULOCYTE COUNT [HEME] Routine Lab 03/12/20 18:32 Ordered TYPE AND SCREEN [BBK] Stat Lab 03/12/20 14:25 Results Acetaminophen [TylenoL] Med 03/12/20 18:25 Active 650 mg PO Q4H PRN Ferrous Sulfate Med 03/12/20 19:00 Active 325 mg PO BIDMEALS Furosemide [Lasix] Med 03/13/20 09:00 Active 60 mg PO DAILY Losartan [Cozaar] Med 03/12/20 21:00 Active 25 mg PO BID Ondansetron [Zofran] Med 03/12/20 18:25 Active 4 mg IVPUSH Q4H PRN Pantoprazole [ProTONIX] Med 03/12/20 21:00 Active 40 mg PO BID Rivaroxaban [Xarelto] Med 03/13/20 09:00 Active 20 mg PO DAILY Sodium Chloride 0.9% [Saline Flush] Med 03/12/20 14:14 Active 10 ml FLUSH ASDIRECTED PRN Sodium Chloride 0.9% [Saline Flush] Med 03/12/20 14:14 Active 2.5 ml FLUSH ASDIRECTED PRN carvediloL [Coreg] Med 03/13/20 09:00 Active 12.5 mg PO DAILY Saline Lock Insert [OM.PC] Stat Ot 03/12/20 14:14 Ordered Sequential Compression Device [OM.PC] Per Unit Routine Ot 03/12/20 18:27 Ordered Transfuse Red Blood Cells [COMM] Stat Ot 03/12/20 14:13 Ordered Resuscitation Status Routine Resus Stat 03/12/20 18:25 Ordered Medication Orders Acetaminophen (Tylenol) 650 mg PO Q4H PRN PRN Reason: Pain (Mild 1-3)/fever Carvedilol (Coreg) 12.5 mg PO DAILY ROSALBA Ferrous Sulfate (Ferrous Sulfate) 325 mg PO BIDMEALS ROSALBA Furosemide (Lasix) 60 mg PO DAILY ROSALBA Losartan Potassium (Cozaar) 25 mg PO BID ROSALBA Ondansetron HCl (Zofran) 4 mg IVPUSH Q4H PRN PRN Reason: Nausea/Vomiting Pantoprazole Sodium (Protonix) 40 mg PO BID ROSALBA Rivaroxaban (Xarelto) 20 mg PO DAILY ROSALBA Sodium Chloride (Saline Flush) 10 ml FLUSH ASDIRECTED PRN PRN Reason: Keep Vein Open Last Admin: 03/12/20 14:27 Dose: 10 ml Documented by: SILVANO Sodium Chloride (Saline Flush) 2.5 ml FLUSH ASDIRECTED PRN PRN Reason: Keep Vein Open Last Admin: 03/12/20 14:27 Dose: 2.5 ml Documented by: SILVANO Assessment/Plan Comment:: Patient is an 84-year-old gentleman with previous known history of anemia and r equiring transfusions, was admitted for hemoglobin of 6.0 requiring 2 units of packed red blood cells. 1. Symptomatic anemia: Hemoglobin 6.0, normocytic, will get peripheral blood smear, LDH, indirect bilirubin, haptoglobin globin and reticulocyte count Endorsing symptoms of dizziness, with numbness and tingling in fingers and toes 2 units packed red blood cells, will get H&H 1 hour posttransfusion, follow up with H&H every 6 hours as patient has no active source of bleed Continue with ferrous sulfate 325 home dose, B12 supplementation 2. Mild hyperkalemia: 5.5, asymptomatic, due to cardiac history and elevated potassium continue to monitor on telemetry, patient has been receiving fluids and continues to be asymptomatic. Will reassess with ashlee CMP 3. Past medical history of CHF, hypertension, A. fib, on Xarelto and COPD: We will resume all appropriate home medications DVT prophylaxis home dose of Xarelto, GI prophylaxis 40 IV pantoprazole daily, activity up with assistance
[2020-03-12] MEDS: Pantoprazole 40 MG Tab.CR PO SCH (20:05)
[2020-03-12] MEDS: Ferrous Sulfate 325 MG Tab PO SCH (20:05)
[2020-03-12] MEDS: Losartan 50 MG Tab PO SCH (21:49)
[2020-03-12] MEDS ORDERED: Calcium Carbonate 500 MG Tab.Chew PO PRN (22:36)
[2020-03-13 08:24] LABS: BLOOD UREA NITROGEN,BUN 34 mg/dL (7.0-18.0); CARBON DIOXIDE,CO2 29.4 mmol/L (21.0-32.0); CHLORIDE,CL 106 mmol/L (98-107); GLUCOSE RANDOM 99 mg/dL (74-106); POTASSIUM,K 5.1 mmol/L (3.5-5.1); SODIUM,NA 141 mmol/L (136-148)
[2020-03-13] MEDS: Pantoprazole 40 MG Tab.CR PO SCH (08:30)
[2020-03-13] MEDS: Ferrous Sulfate 325 MG Tab PO SCH ×2 (08:30→17:49)
[2020-03-13] MEDS ORDERED: Furosemide 40 MG Tab PO SCH (09:00)
[2020-03-13] MEDS ORDERED: Rivaroxaban 10 MG Tab PO SCH ×2 (09:00→17:30)
[2020-03-13] MEDS ORDERED: Carvedilol 12.5 MG Tab PO SCH (09:00)
--- NOTE | 2020-03-13 11:41 | PCM.PN ---
<Kamla Colby - Last Filed: 03/13/20 11:44> - General Info Date of Service: 03/13/20 Admission Dx/Problem (Free Text): Admission Diagnosis/Problem Admission Diagnosis/Problem Anemia Subjective Update: Ivette 84-year-old gentleman was admitted from [facility] for symptomatic anemia with a hemoglobin of 6.0. Was given 3 units and states that his symptoms have improved. No longer feels dizzy or numbness and tingling in his fingers and toes. Denies shortness of breath, palpitations, mental fog, syncope or presyncope, fatigue or lethargy. Patient states he feels much improved and is eager to go home. Functional Status: Reports: Tolerating Diet - Review of Systems General: Reports: No Symptoms HEENT: Reports: No Symptoms Pulmonary: Reports: No Symptoms Cardiovascular: Reports: No Symptoms Gastrointestinal: Reports: No Symptoms Genitourinary: Reports: No Symptoms Musculoskeletal: Reports: No Symptoms Skin: Reports: No Symptoms Neurological: Reports: No Symptoms Psychiatric: Reports: No Symptoms - Patient Data Vitals - Most Recent: Last Vital Signs Temp 98.3 F 03/13/20 11:00 Pulse 87 03/13/20 11:00 Resp 16 03/13/20 11:00 BP 98/58 L 03/13/20 11:00 Pulse Ox 98 03/13/20 11:00 Weight - Most Recent: 99.507 kg I&O - Last 24 Hours: Intake & Output 03/12/20 03/13/20 03/13/20 22:59 06:59 14:59 Intake Total 350 950 Output Total 1250 Balance 350 -300 Lab Results Last 24 Hours: Laboratory Results - last 24 hr 03/12/20 03/12/20 03/12/20 Range/Units 14:18 14:18 14:18 WBC 6.05 (4.0-11.0) K/uL RBC 2.47 L (4.50-5.90) M/uL Hgb 6.0 L (13.0-17.0) g/dL Hct 21.3 L (38.0-50.0) % MCV 86.2 (80.0-98.0) fL MCH 24.3 L (27.0-32.0) pg MCHC 28.2 L (31.0-37.0) g/dL RDW Std Deviation 54.3 (28.0-62.0) fl RDW Coeff of Dayanna 17 H (11.0-15.0) % Plt Count 154 (150-400) K/uL MPV 10.40 (7.40-12.00) fL Neut % (Auto) 74.6 (48.0-80.0) % Lymph % (Auto) 7.3 L (16.0-40.0) % [place] % (Auto) 13.6 (0.0-15.0) % Eos % (Auto) 3.8 (0.0-7.0) % Baso % (Auto) 0.7 (0.0-1.5) % Neut # (Auto) 4.5 (1.4-5.7) K/uL Lymph # (Auto) 0.4 L (0.6-2.4) K/uL [place] # (Auto) 0.8 (0.0-0.8) K/uL Eos # (Auto) 0.2 (0.0-0.7) K/uL Baso # (Auto) 0.0 (0.0-0.1) K/uL Nucleated RBC % 0.0 /100WBC Nucleated RBCs # 0 K/uL INR 1.71 Sodium 142 (136-148) mmol/L Potassium 5.5 H (3.5-5.1) mmol/L Chloride 106 (98-107) mmol/L Carbon Dioxide 27.9 (21.0-32.0) mmol/L BUN 43 H (7.0-18.0) mg/dL Creatinine 1.4 H (0.8-1.3) mg/dL Est Cr Clr Drug Dosing 41.57 mL/min Estimated GFR (MDRD) 48.1 ml/min Glucose 137 H (74-106) mg/dL Calcium 8.5 (8.5-10.1) mg/dL Total Bilirubin 0.3 (0.2-1.0) mg/dL AST 17 (15-37) IU/L ALT 25 (14-63) IU/L Alkaline Phosphatase 67 (46-116) U/L B-Natriuretic Peptide (<100) PG/ML Total Protein 6.4 (6.4-8.2) g/dL Albumin 3.5 (3.4-5.0) g/dL Globulin 2.9 (2.6-4.0) g/dL Albumin/Globulin Ratio 1.2 (0.9-1.6) Vitamin B12 (193-986) pg/mL Urine Color Urine Appearance Urine pH (5.0-8.0) Ur Specific [place] (1.001-1.035) Urine Protein (NEGATIVE) mg/dL Urine Glucose (UA) (NEGATIVE) mg/dL Urine Ketones (NEGATIVE) mg/dL Urine Occult Blood (NEGATIVE) Urine Nitrite (NEGATIVE) Urine Bilirubin (NEGATIVE) Urine Urobilinogen (<2.0) EU/dL Ur Leukocyte Esterase (NEGATIVE) SARS-CoV-2 RNA (ANNALISA) (NEGATIVE) Blood Type Antibody Screen Crossmatch 03/12/20 03/12/20 03/12/20 Range/Units 14:18 14:25 14:48 WBC (4.0-11.0) K/uL RBC (4.50-5.90) M/uL Hgb (13.0-17.0) g/dL Hct (38.0-50.0) % MCV (80.0-98.0) fL MCH (27.0-32.0) pg MCHC (31.0-37.0) g/dL RDW Std Deviation (28.0-62.0) fl RDW Coeff of [place] (11.0-15.0) % Plt Count (150-400) K/uL MPV (7.40-12.00) fL Neut % (Auto) (48.0-80.0) % Lymph % (Auto) (16.0-40.0) % [place] % (Auto) (0.0-15.0) % Eos % (Auto) (0.0-7.0) % Baso % (Auto) (0.0-1.5) % Neut # (Auto) (1.4-5.7) K/uL Lymph # (Auto) (0.6-2.4) K/uL [place] # (Auto) (0.0-0.8) K/uL Eos # (Auto) (0.0-0.7) K/uL Baso # (Auto) (0.0-0.1) K/uL Nucleated RBC % /100WBC Nucleated RBCs # K/uL INR Sodium (136-148) mmol/L Potassium (3.5-5.1) mmol/L Chloride (98-107) mmol/L Carbon Dioxide (21.0-32.0) mmol/L BUN (7.0-18.0) mg/dL Creatinine (0.8-1.3) mg/dL Est Cr Clr Drug Dosing mL/min Estimated GFR (MDRD) ml/min Glucose (74-106) mg/dL Calcium (8.5-10.1) mg/dL Total Bilirubin (0.2-1.0) mg/dL AST (15-37) IU/L ALT (14-63) IU/L Alkaline Phosphatase (46-116) U/L B-Natriuretic Peptide 356 H (<100) PG/ML Total Protein (6.4-8.2) g/dL Albumin (3.4-5.0) g/dL Globulin (2.6-4.0) g/dL Albumin/Globulin Ratio (0.9-1.6) Vitamin B12 (193-986) pg/mL Urine Color Urine Appearance Urine pH (5.0-8.0) Ur Specific [place] (1.001-1.035) Urine Protein (NEGATIVE) mg/dL Urine Glucose (UA) (NEGATIVE) mg/dL Urine Ketones (NEGATIVE) mg/dL Urine Occult Blood (NEGATIVE) Urine Nitrite (NEGATIVE) Urine Bilirubin (NEGATIVE) Urine Urobilinogen (<2.0) EU/dL Ur Leukocyte Esterase (NEGATIVE) SARS-CoV-2 RNA (ANNALISA) NEGATIVE (NEGATIVE) Blood Type A NEGATIVE Antibody Screen NEGATIVE Crossmatch See Detail 03/12/20 03/12/20 03/13/20 Range/Units 15:17 23:10 00:56 WBC (4.0-11.0) K/uL RBC (4.50-5.90) M/uL Hgb 7.2 L 6.8 L (13.0-17.0) g/dL Hct 24.4 L 22.4 L (38.0-50.0) % MCV (80.0-98.0) fL MCH (27.0-32.0) pg MCHC (31.0-37.0) g/dL RDW Std Deviation (28.0-62.0) fl RDW Coeff of [place] (11.0-15.0) % Plt Count (150-400) K/uL MPV (7.40-12.00) fL Neut % (Auto) (48.0-80.0) % Lymph % (Auto) (16.0-40.0) % [place] % (Auto) (0.0-15.0) % Eos % (Auto) (0.0-7.0) % Baso % (Auto) (0.0-1.5) % Neut # (Auto) (1.4-5.7) K/uL Lymph # (Auto) (0.6-2.4) K/uL [place] # (Auto) (0.0-0.8) K/uL Eos # (Auto) (0.0-0.7) K/uL Baso # (Auto) (0.0-0.1) K/uL Nucleated RBC % /100WBC Nucleated RBCs # K/uL INR Sodium (136-148) mmol/L Potassium (3.5-5.1) mmol/L Chloride (98-107) mmol/L Carbon Dioxide (21.0-32.0) mmol/L BUN (7.0-18.0) mg/dL Creatinine (0.8-1.3) mg/dL Est Cr Clr Drug Dosing mL/min Estimated GFR (MDRD) ml/min Glucose (74-106) mg/dL Calcium (8.5-10.1) mg/dL Total Bilirubin (0.2-1.0) mg/dL AST (15-37) IU/L ALT (14-63) IU/L Alkaline Phosphatase (46-116) U/L B-Natriuretic Peptide (<100) PG/ML Total Protein (6.4-8.2) g/dL Albumin (3.4-5.0) g/dL Globulin (2.6-4.0) g/dL Albumin/Globulin Ratio (0.9-1.6) Vitamin B12 (193-986) pg/mL Urine Color YELLOW Urine Appearance CLEAR Urine pH 5.5 (5.0-8.0) Ur Specific [place] 1.020 (1.001-1.035) Urine Protein NEGATIVE (NEGATIVE) mg/dL Urine Glucose (UA) NEGATIVE (NEGATIVE) mg/dL Urine Ketones NEGATIVE (NEGATIVE) mg/dL Urine Occult Blood NEGATIVE (NEGATIVE) Urine Nitrite NEGATIVE (NEGATIVE) Urine Bilirubin NEGATIVE (NEGATIVE) Urine Urobilinogen 0.2 (<2.0) EU/dL Ur Leukocyte Esterase NEGATIVE (NEGATIVE) SARS-CoV-2 RNA (ANNALISA) (NEGATIVE) Blood Type Antibody Screen Crossmatch 03/13/20 03/13/20 Range/Units 07:30 07:30 WBC 6.87 (4.0-11.0) K/uL RBC 3.02 L (4.50-5.90) M/uL Hgb 7.9 L (13.0-17.0) g/dL Hct 26.1 L (38.0-50.0) % MCV 86.4 (80.0-98.0) fL MCH 26.2 L (27.0-32.0) pg MCHC 30.3 L (31.0-37.0) g/dL RDW Std Deviation 53.9 (28.0-62.0) fl RDW Coeff of Dayanna 17 H (11.0-15.0) % Plt Count 133 L (150-400) K/uL MPV 10.40 (7.40-12.00) fL Neut % (Auto) 76.4 (48.0-80.0) % Lymph % (Auto) 6.0 L (16.0-40.0) % [place] % (Auto) 14.7 (0.0-15.0) % Eos % (Auto) 2.5 (0.0-7.0) % Baso % (Auto) 0.4 (0.0-1.5) % Neut # (Auto) 5.3 (1.4-5.7) K/uL Lymph # (Auto) 0.4 L (0.6-2.4) K/uL [place] # (Auto) 1.0 H (0.0-0.8) K/uL Eos # (Auto) 0.2 (0.0-0.7) K/uL Baso # (Auto) 0.0 (0.0-0.1) K/uL Nucleated RBC % 0.2 /100WBC Nucleated RBCs # 0 K/uL INR Sodium 141 (136-148) mmol/L Potassium 5.1 (3.5-5.1) mmol/L Chloride 106 (98-107) mmol/L Carbon Dioxide 29.4 (21.0-32.0) mmol/L BUN 34 H (7.0-18.0) mg/dL Creatinine 1.0 (0.8-1.3) mg/dL Est Cr Clr Drug Dosing 58.20 mL/min Estimated GFR (MDRD) > 60.0 ml/min Glucose 99 (74-106) mg/dL Calcium 8.3 L (8.5-10.1) mg/dL Total Bilirubin 1.2 H (0.2-1.0) mg/dL AST 18 (15-37) IU/L ALT 23 (14-63) IU/L Alkaline Phosphatase 67 (46-116) U/L B-Natriuretic Peptide (<100) PG/ML Total Protein 6.0 L (6.4-8.2) g/dL Albumin 3.4 (3.4-5.0) g/dL Globulin 2.6 (2.6-4.0) g/dL Albumin/Globulin Ratio 1.3 (0.9-1.6) Vitamin B12 1214 H (193-986) pg/mL Urine Color Urine Appearance Urine pH (5.0-8.0) Ur Specific [place] (1.001-1.035) Urine Protein (NEGATIVE) mg/dL Urine Glucose (UA) (NEGATIVE) mg/dL Urine Ketones (NEGATIVE) mg/dL Urine Occult Blood (NEGATIVE) Urine Nitrite (NEGATIVE) Urine Bilirubin (NEGATIVE) Urine Urobilinogen (<2.0) EU/dL Ur Leukocyte Esterase (NEGATIVE) SARS-CoV-2 RNA (ANNALISA) (NEGATIVE) Blood Type Antibody Screen Crossmatch Med Orders - Current: Current Medications Acetaminophen (Tylenol) 650 mg PO Q4H PRN PRN Reason: Pain (Mild 1-3)/fever Last Admin: 03/13/20 09:09 Dose: 650 mg Documented by: Calcium Carbonate/Glycine (Tums) 1,000 mg PO Q6H PRN PRN Reason: Indigestion Last Admin: 03/12/20 22:46 Dose: 1,000 mg Documented by: Carvedilol (Coreg) 12.5 mg PO DAILY [facility] Ferrous Sulfate (Ferrous Sulfate) 325 mg PO BIDMEALS [facility] Last Admin: 03/13/20 08:30 Dose: 325 mg Documented by: Furosemide (Lasix) 60 mg PO DAILY [facility] Losartan Potassium (Cozaar) 25 mg PO BID [facility] Last Admin: 03/12/20 21:49 Dose: Not Given Documented by: Ondansetron HCl (Zofran) 4 mg IVPUSH Q4H PRN PRN Reason: Nausea/Vomiting Pantoprazole Sodium (Protonix) 40 mg PO BID [facility] Last Admin: 03/13/20 08:30 Dose: 40 mg Documented by: Sodium Chloride (Saline Flush) 10 ml FLUSH ASDIRECTED PRN PRN Reason: Keep Vein Open Last Admin: 03/12/20 14:27 Dose: 10 ml Documented by: Sodium Chloride (Saline Flush) 2.5 ml FLUSH ASDIRECTED PRN PRN Reason: Keep Vein Open Last Admin: 03/12/20 14:27 Dose: 2.5 ml Documented by: Discontinued Medications Sodium Chloride (Normal Saline) 1,000 mls @ 200 mls/hr IV STAT ONE Stop: 03/12/20 19:13 Last Admin: 03/12/20 14:27 Dose: 200 mls/hr Documented by: Propofol (Diprivan 100 Ml) 100 mls @ 3.062 mls/hr IV TITRATE ROSALBA; Protocol Sodium Chloride (Normal Saline) 1,000 mls @ 999 mls/hr IV STAT ONE Stop: 03/12/20 18:14 Last Admin: 03/12/20 18:09 Dose: 999 mls/hr Documented by: Succinylcholine Chloride (Quelicin) 100 mg IV NOW STA Stop: 03/12/20 17:14 Last Admin: 03/12/20 18:15 Dose: Not Given Documented by: - Exam Quality Assessment: Supplemental Oxygen (Regular home use of 5 L) General: Alert, Oriented, Cooperative, No Acute Distress. No: Sedated, Lethargic HEENT: Pupils Equal, Pupils Reactive, EOMI, Mucous Membr. Moist/[place] Neck: Supple Lungs: Clear to Auscultation, Normal Respiratory Effort Cardiovascular: Irregular Rhythm (History of A. fib on Xarelto) GI/Abdominal Exam: Normal Bowel Sounds, Soft, Non-Tender, No Organomegaly, No Distention, No Mass. No: Distended, Guarding, Rigid, Rebound Extremities: Normal Inspection, Normal Range of Motion, No Pedal Edema, Normal Capillary Refill (Improved capillary refill, 2 to 6 seconds) Peripheral Pulses: 2+: Radial (L), Radial (R), Dorsalis Pedis (L), Dorsalis Pedis (R) Skin: Warm, Dry Wound/Incisions: Healing Well Neurological: No New Focal Deficit Psy/Mental Status: Alert, Normal Affect, Normal Mood Sepsis Event Note - Evaluation Sepsis Screening Result: No Definite Risk - Focused Exam Vital Signs: Vital Signs Temp Temp Pulse Resp BP Pulse Ox 03/13/20 11:00 98.3 F 87 16 98/58 L 98 03/13/20 07:12 98.2 F 73 16 109/58 L 100 03/13/20 07:00 98.1 F 98 16 108/56 L 98 03/13/20 06:12 97.9 F 78 16 107/58 L 100 03/13/20 05:00 98.2 F 72 17 99/59 L 99 03/13/20 03:03 98.5 F 75 15 97/59 L 99 03/13/20 02:47 98.3 F 83 16 99/51 L 99 03/13/20 00:28 97.9 F 80 17 120/53 L 99 03/13/20 00:00 97.9 F 80 16 120/53 L 99 - Problem List & Annotations (1) Anemia SNOMED Code(s): 769732780 Code(s): D64.9 - ANEMIA, UNSPECIFIED Status: Acute Qualifiers: Anemia type: unspecified type Qualified Code(s): D64.9 - Anemia, unspecified (2) History of atrial fibrillation SNOMED Code(s): 285897082 Code(s): Z86.79 - PERSONAL HISTORY OF OTHER DISEASES OF THE CIRCULATORY SYSTEM Status: Acute (3) Hyperkalemia SNOMED Code(s): 68959258 Code(s): E87.5 - HYPERKALEMIA Status: Acute - Problem List Review Problem List Initiated/Reviewed/Updated: Yes - My Orders Last 24 Hours: My Active Orders 03/12/20 Dinner Heart Healthy Diet [DIET] 03/12/20 17:45 Communication Order [RC] ROUTINE 03/12/20 18:25 Oxygen Therapy [RC] PRN Up With Assistance [RC] ASDIRECTED VTE/DVT Education [RC] PER UNIT ROUTINE Vital Signs [RC] Q4H Acetaminophen [TylenoL] 650 mg PO Q4H PRN Ondansetron [Zofran] 4 mg IVPUSH Q4H PRN Resuscitation Status Routine 03/12/20 18:27 Cardiac Monitoring [RC] CONTINUOUS Sequential Compression Device [OM.PC] Per Unit Routine 03/12/20 18:28 Antiembolic Devices [RC] PER UNIT ROUTINE 03/12/20 19:00 Ferrous Sulfate 325 mg PO BIDMEALS 03/12/20 21:00 Losartan [Cozaar] 25 mg PO BID Pantoprazole [ProTONIX] 40 mg PO BID 03/12/20 23:10 HAPTOGLOBIN [REF] Routine 03/13/20 09:00 Furosemide [Lasix] 60 mg PO DAILY carvediloL [Coreg] 12.5 mg PO DAILY 03/13/20 11:04 OCCULT BLOOD DIAGNOSTIC [OP] Routine 03/14/20 05:11 CBC WITH AUTO DIFF [HEME] AM COMPREHENSIVE METABOLIC PN,CMP [CHEM] AM 03/15/20 05:11 CBC WITH AUTO DIFF [HEME] AM COMPREHENSIVE METABOLIC PN,CMP [CHEM] AM 03/16/20 05:11 CBC WITH AUTO DIFF [HEME] AM COMPREHENSIVE METABOLIC PN,CMP [CHEM] AM 03/17/20 05:11 COMPREHENSIVE METABOLIC PN,CMP [CHEM] AM - Plan Plan:: Patient is an 84-year-old gentleman with previous known history of anemia and requiring transfusions, was admitted for hemoglobin of 6.0 requiring 2 units of packed red blood cells. 1. Symptomatic anemia: Resolved, 7.9 post 3 units packed red blood cells, asymptomatic no longer dizzy or numbness and tingling Will recheck H&H at 1400 prior to discharge Continue with ferrous sulfate 325 home dose, B12 supplementation 2. Mild hyperkalemia: resolved 5.1, 3. Past medical history of CHF, hypertension, A. fib, on Xarelto and COPD: We will resume all appropriate home medications Soft blood pressures this morning 108/56 therefore held Cozaar/losartan and Lasix DVT prophylaxis home dose of Xarelto, GI prophylaxis 40 IV pantoprazole daily, activity up with assistance <Pio Fairbanks - Last Filed: 03/14/20 10:39> - Patient Data Vitals - Most Recent: Last Vital Signs Temp 36.7 C 03/13/20 16:00 Pulse 81 03/13/20 16:00 Resp 18 03/13/20 16:00 BP 107/66 03/13/20 16:00 Pulse Ox 100 03/13/20 16:00 Lab Results Last 24 Hours: Laboratory Results - last 24 hr 03/12/20 03/13/20 Range/Units 23:10 13:51 Hgb 7.7 L (13.0-17.0) g/dL Hct 25.4 L (38.0-50.0) % Haptoglobin 68 (44-215) mg/dL Med Orders - Current: Current Medications Discontinued Medications Acetaminophen (Tylenol) 650 mg PO Q4H PRN PRN Reason: Pain (Mild 1-3)/fever Last Admin: 03/13/20 09:09 Dose: 650 mg Documented by: Calcium Carbonate/Glycine (Tums) 1,000 mg PO Q6H PRN PRN Reason: Indigestion Last Admin: 03/12/20 22:46 Dose: 1,000 mg Documented by: Carvedilol (Coreg) 12.5 mg PO DAILY [facility] Last Admin: 03/13/20 13:00 Dose: Not Given Documented by: Ferrous Sulfate (Ferrous Sulfate) 325 mg PO BIDMEALS [facility] Last Admin: 03/13/20 17:49 Dose: 325 mg Documented by: Furosemide (Lasix) 60 mg PO DAILY [facility] Last Admin: 03/13/20 13:01 Dose: Not Given Documented by: Sodium Chloride (Normal Saline) 1,000 mls @ 200 mls/hr IV STAT ONE Stop: 03/12/20 19:13 Last Admin: 03/12/20 14:27 Dose: 200 mls/hr Documented by: Propofol (Diprivan 100 Ml) 100 mls @ 3.062 mls/hr IV TITRATE [facility]; Protocol Sodium Chloride (Normal Saline) 1,000 mls @ 999 mls/hr IV STAT ONE Stop: 03/12/20 18:14 Last Admin: 03/12/20 18:09 Dose: 999 mls/hr Documented by: Losartan Potassium (Cozaar) 25 mg PO BID [facility] Last Admin: 03/13/20 13:00 Dose: Not Given Documented by: Losartan Potassium (Cozaar) 25 mg PO DAILY [facility] Ondansetron HCl (Zofran) 4 mg IVPUSH Q4H PRN PRN Reason: Nausea/Vomiting Pantoprazole Sodium (Protonix) 40 mg PO BID [facility] Last Admin: 03/13/20 08:30 Dose: 40 mg Documented by: Rivaroxaban (Xarelto) 20 mg PO WITHDINNER [facility] Last Admin: 03/13/20 17:49 Dose: 20 mg Documented by: Sodium Chloride (Saline Flush) 10 ml FLUSH ASDIRECTED PRN PRN Reason: Keep Vein Open Last Admin: 03/12/20 14:27 Dose: 10 ml Documented by: Sodium Chloride (Saline Flush) 2.5 ml FLUSH ASDIRECTED PRN PRN Reason: Keep Vein Open Last Admin: 03/12/20 14:27 Dose: 2.5 ml Documented by: Succinylcholine Chloride (Quelicin) 100 mg IV NOW STA Stop: 03/12/20 17:14 Last Admin: 03/12/20 18:15 Dose: Not Given Documented by: Zinc Acetate/Diphenhydramine (Benadryl Itch Stopping Crm) 0 gm TOP ASDIRECTED PRN PRN Reason: Itching Last Admin: 03/13/20 14:31 Dose: 1 applic Documented by: - Free Text/Narrative Note: I have seen and evaluated the patient. I have discussed findings and treatment plan with resident. I agree with the assessment and plan in the following note.
[2020-03-13] MEDS: Losartan 50 MG Tab PO SCH (13:00)
[2020-03-13] MEDS ORDERED: diphenhydrAMINE/Zinc Acetate 1% Crm 28.3 GM Tube TOP PRN (14:13)
[2020-03-13 17:32] VITALS: BP 107/66; PULSE 81
--- NOTE | 2020-03-13 17:41 | PCM.DCSUM1 ---
<Kamla Colby - Last Filed: 03/13/20 18:11> Discharge Summary - Hospital Course Brief History: Patient is a sheila 84-year-old gentleman with a past medical history of CHF, hypertension, A. fib on Xarelto and COPD was sent directly from [facility] where he was seen for routine blood draws for previous anemias and transfusions. Stated he is had dizziness for the last 3 days, and has felt similar prior to requiring transfusions in the past. Denied any fever, chills, headache, visual changes or any syncope, no blood in urine, stools or sputum. ER course: CBC, CMP, BNP, UA, Covid, INR, chest x-ray. Therapeutic measures: 2 boluses of LR, 2 units packed red blood cell transfusion Diagnosis: Stroke: No - Discharge Data Discharge Date: 03/13/20 Discharge Disposition: Home, Self-Care 01 Condition: Good - Referral to Home Health Primary Care Physician: Levi Sandoval MD - Discharge Diagnosis/Problem(s) (1) Anemia SNOMED Code(s): 047900191 ICD Code: D64.9 - ANEMIA, UNSPECIFIED Status: Acute Qualifiers: Anemia type: unspecified type Qualified Code(s): D64.9 - Anemia, unspecified (2) History of atrial fibrillation SNOMED Code(s): 525419725 ICD Code: Z86.79 - PERSONAL HISTORY OF OTHER DISEASES OF THE CIRCULATORY SYSTEM Status: Acute (3) Hyperkalemia SNOMED Code(s): 14331486 ICD Code: E87.5 - HYPERKALEMIA Status: Acute - Patient Summary/Data Hospital Course: Patient was admitted with symptomatic anemia with a hemoglobin of 6.0, symptoms consisted of dizziness and numbness and tingling in fingers and toes. Patient recognize similar to previous times he has required transfusions for anemia. Patient was given total 3 units packed red blood cells. Following morning hemoglobin was corrected to 7.9 with follow-up H&H later in the afternoon within appropriate limits. Patient stated he felt much improved, overall skin coloration had improved, dizziness numbness and tingling had resolved. Patient had expressed desire for discharge and patient was medically stable. - Patient Instructions Diet: Heart Healthy Diet, Low Sodium Activity: As Tolerated Showering/Bathing: June Shower Notify Provider of: Fever, Increased Pain, Swelling and Redness, Nausea and/or Vomiting Other/Special Instructions: Please return to hospital in the event her symptoms resume or worsen, also if you develop palpitations, chest pain, dizziness, numbness or tingling, or have any major source of bleed such as blood noted in your urine or stool or sputum - Discharge Plan *PRESCRIPTION DRUG MONITORING PROGRAM REVIEWED*: Not Applicable *COPY OF PRESCRIPTION DRUG MONITORING REPORT IN PATIENT ANABELA: Not Applicable Prescriptions/Med Rec: diphenhydrAMINE/Zinc Acetate [Benadryl Itch Stopping Crm] 1 lotion TOP A SDIRECTED PRN 30 Days #1 tube PRN Reason: Itching Home Medications: Home Meds Furosemide 80 mg PO DAILY 04/03/19 [History] Losartan [Cozaar] 25 mg PO DAILY 04/03/19 [History] Rivaroxaban [Xarelto] 20 mg PO DAILY 04/03/19 [History] carvediloL [Coreg] 12.5 mg PO BID 04/03/19 [History] Ferrous Sulfate 325 mg PO BIDMEALS 14 Days #28 tablet 04/05/19 [Rx] Albuterol Sulfate [Proair Respiclick] 1 inh IH Q4H PRN 03/13/20 [History] Calcium Carbonate [Tums] 1,000 mg PO Q6H PRN tab.chew 03/13/20 [Rx] Cyanocobalamin (Vitamin B12) [Vitamin B12] 5,000 mcg PO DAILY 03/13/20 [History] Fluticasone Propionate [Flonase] 1 spray NASBOTH DAILY PRN 03/13/20 [History] Pantoprazole [ProTONIX] 40 mg PO BID tab.cr 03/13/20 [Rx] Rivaroxaban [Xarelto] 20 mg PO WITHDINNER tablet 03/13/20 [Rx] calcium polycarbophiL [Fibercon] 625 - 1,250 mg PO BEDTIME PRN 03/13/20 [History] diphenhydrAMINE/Zinc Acetate [Benadryl Itch Stopping Crm] 1 lotion TOP ASDIRECTED PRN 30 Days #1 tube 03/13/20 [Rx] Oxygen Therapy Mode: Nasal Cannula (Previously known to use home oxygen therefore was continued during his stay here) Patient Handouts: Hemolytic Anemia, Diphenhydramine capsules or tablets Referrals: Efraín Mahoney MD [Ordering Only Provider] - 03/24/20 10:15 am - Discharge Summary/Plan Comment DC Time >30 min.: No Discharge Summary/Plan Comment: Patient is to follow-up closely with PCP for assessment of his anemia by blood work and physical examination. Patient is to return to hospital in the event his symptoms resume or worsen. - Patient Data Vitals - Most Recent: Last Vital Signs Temp 98.1 F 03/13/20 16:00 Pulse 81 03/13/20 16:00 Resp 18 03/13/20 16:00 BP 107/66 03/13/20 16:00 Pulse Ox 100 03/13/20 16:00 Weight - Most Recent: 99.507 kg I&O - Last 24 hours: Intake & Output 03/13/20 03/13/20 03/13/20 06:59 14:59 22:59 Intake Total 950 Output Total 1250 Balance -300 Lab Results - Last 24 hrs: Laboratory Results - last 24 hr 03/12/20 03/12/20 03/13/20 Range/Units 14:25 23:10 00:56 WBC (4.0-11.0) K/uL RBC (4.50-5.90) M/uL Hgb 7.2 L 6.8 L (13.0-17.0) g/dL Hct 24.4 L 22.4 L (38.0-50.0) % MCV (80.0-98.0) fL MCH (27.0-32.0) pg MCHC (31.0-37.0) g/dL RDW Std Deviation (28.0-62.0) fl RDW Coeff of Dayanna (11.0-15.0) % Plt Count (150-400) K/uL MPV (7.40-12.00) fL Neut % (Auto) (48.0-80.0) % Lymph % (Auto) (16.0-40.0) % [place] % (Auto) (0.0-15.0) % Eos % (Auto) (0.0-7.0) % Baso % (Auto) (0.0-1.5) % Neut # (Auto) (1.4-5.7) K/uL Lymph # (Auto) (0.6-2.4) K/uL [place] # (Auto) (0.0-0.8) K/uL Eos # (Auto) (0.0-0.7) K/uL Baso # (Auto) (0.0-0.1) K/uL Nucleated RBC % /100WBC Nucleated RBCs # K/uL Sodium (136-148) mmol/L Potassium (3.5-5.1) mmol/L Chloride (98-107) mmol/L Carbon Dioxide (21.0-32.0) mmol/L BUN (7.0-18.0) mg/dL Creatinine (0.8-1.3) mg/dL Est Cr Clr Drug Dosing mL/min Estimated GFR (MDRD) ml/min Glucose (74-106) mg/dL Calcium (8.5-10.1) mg/dL Total Bilirubin (0.2-1.0) mg/dL AST (15-37) IU/L ALT (14-63) IU/L Alkaline Phosphatase (46-116) U/L Total Protein (6.4-8.2) g/dL Albumin (3.4-5.0) g/dL Globulin (2.6-4.0) g/dL Albumin/Globulin Ratio (0.9-1.6) Vitamin B12 (193-986) pg/mL Blood Type A NEGATIVE Antibody Screen NEGATIVE Crossmatch See Detail 03/13/20 03/13/20 03/13/20 Range/Units 07:30 07:30 13:51 WBC 6.87 (4.0-11.0) K/uL RBC 3.02 L (4.50-5.90) M/uL Hgb 7.9 L 7.7 L (13.0-17.0) g/dL Hct 26.1 L 25.4 L (38.0-50.0) % MCV 86.4 (80.0-98.0) fL MCH 26.2 L (27.0-32.0) pg MCHC 30.3 L (31.0-37.0) g/dL RDW Std Deviation 53.9 (28.0-62.0) fl RDW Coeff of Dayanna 17 H (11.0-15.0) % Plt Count 133 L (150-400) K/uL MPV 10.40 (7.40-12.00) fL Neut % (Auto) 76.4 (48.0-80.0) % Lymph % (Auto) 6.0 L (16.0-40.0) % [place] % (Auto) 14.7 (0.0-15.0) % Eos % (Auto) 2.5 (0.0-7.0) % Baso % (Auto) 0.4 (0.0-1.5) % Neut # (Auto) 5.3 (1.4-5.7) K/uL Lymph # (Auto) 0.4 L (0.6-2.4) K/uL [place] # (Auto) 1.0 H (0.0-0.8) K/uL Eos # (Auto) 0.2 (0.0-0.7) K/uL Baso # (Auto) 0.0 (0.0-0.1) K/uL Nucleated RBC % 0.2 /100WBC Nucleated RBCs # 0 K/uL Sodium 141 (136-148) mmol/L Potassium 5.1 (3.5-5.1) mmol/L Chloride 106 (98-107) mmol/L Carbon Dioxide 29.4 (21.0-32.0) mmol/L BUN 34 H (7.0-18.0) mg/dL Creatinine 1.0 (0.8-1.3) mg/dL Est Cr Clr Drug Dosing 58.20 mL/min Estimated GFR (MDRD) > 60.0 ml/min Glucose 99 (74-106) mg/dL Calcium 8.3 L (8.5-10.1) mg/dL Total Bilirubin 1.2 H (0.2-1.0) mg/dL AST 18 (15-37) IU/L ALT 23 (14-63) IU/L Alkaline Phosphatase 67 (46-116) U/L Total Protein 6.0 L (6.4-8.2) g/dL Albumin 3.4 (3.4-5.0) g/dL Globulin 2.6 (2.6-4.0) g/dL Albumin/Globulin Ratio 1.3 (0.9-1.6) Vitamin B12 1214 H (193-986) pg/mL Blood Type Antibody Screen Crossmatch Med Orders - Current: Current Medications Acetaminophen (Tylenol) 650 mg PO Q4H PRN PRN Reason: Pain (Mild 1-3)/fever Last Admin: 03/13/20 09:09 Dose: 650 mg Documented by: Calcium Carbonate/Glycine (Tums) 1,000 mg PO Q6H PRN PRN Reason: Indigestion Last Admin: 03/12/20 22:46 Dose: 1,000 mg Documented by: Carvedilol (Coreg) 12.5 mg PO DAILY [facility] Last Admin: 03/13/20 13:00 Dose: Not Given Documented by: Ferrous Sulfate (Ferrous Sulfate) 325 mg PO BIDMEALS [facility] Last Admin: 03/13/20 08:30 Dose: 325 mg Documented by: Furosemide (Lasix) 60 mg PO DAILY [facility] Last Admin: 03/13/20 13:01 Dose: Not Given Documented by: Losartan Potassium (Cozaar) 25 mg PO DAILY [facility] Ondansetron HCl (Zofran) 4 mg IVPUSH Q4H PRN PRN Reason: Nausea/Vomiting Pantoprazole Sodium (Protonix) 40 mg PO BID [facility] Last Admin: 03/13/20 08:30 Dose: 40 mg Documented by: Rivaroxaban (Xarelto) 20 mg PO UZIEL [facility] Sodium Chloride (Saline Flush) 10 ml FLUSH ASDIRECTED PRN PRN Reason: Keep Vein Open Last Admin: 03/12/20 14:27 Dose: 10 ml Documented by: Sodium Chloride (Saline Flush) 2.5 ml FLUSH ASDIRECTED PRN PRN Reason: Keep Vein Open Last Admin: 03/12/20 14:27 Dose: 2.5 ml Documented by: Zinc Acetate/Diphenhydramine (Benadryl Itch Stopping Crm) 0 gm TOP ASDIRECTED PRN PRN Reason: Itching Last Admin: 03/13/20 14:31 Dose: 1 applic Documented by: Discontinued Medications Sodium Chloride (Normal Saline) 1,000 mls @ 200 mls/hr IV STAT ONE Stop: 03/12/20 19:13 Last Admin: 03/12/20 14:27 Dose: 200 mls/hr Documented by: Propofol (Diprivan 100 Ml) 100 mls @ 3.062 mls/hr IV TITRATE ROSALBA; Protocol Sodium Chloride (Normal Saline) 1,000 mls @ 999 mls/hr IV STAT ONE Stop: 03/12/20 18:14 Last Admin: 03/12/20 18:09 Dose: 999 mls/hr Documented by: Losartan Potassium (Cozaar) 25 mg PO BID [facility] Last Admin: 03/13/20 13:00 Dose: Not Given Documented by: Succinylcholine Chloride (Quelicin) 100 mg IV NOW STA Stop: 03/12/20 17:14 Last Admin: 03/12/20 18:15 Dose: Not Given Documented by: <Pio Fairbanks - Last Filed: 03/14/20 10:39> Discharge Summary - Referral to [facility] Primary Care Physician: Levi Sandoval MD - Patient Data Vitals - Most Recent: Last Vital Signs Temp 36.7 C 03/13/20 16:00 Pulse 81 03/13/20 16:00 Resp 18 03/13/20 16:00 BP 107/66 03/13/20 16:00 Pulse Ox 100 03/13/20 16:00 Lab Results - Last 24 hrs: Laboratory Results - last 24 hr 03/12/20 03/13/20 Range/Units 23:10 13:51 Hgb 7.7 L (13.0-17.0) g/dL Hct 25.4 L (38.0-50.0) % Haptoglobin 68 (44-215) mg/dL Med Orders - Current: Current Medications Discontinued Medications Acetaminophen (Tylenol) 650 mg PO Q4H PRN PRN Reason: Pain (Mild 1-3)/fever Last Admin: 03/13/20 09:09 Dose: 650 mg Documented by: Calcium Carbonate/Glycine (Tums) 1,000 mg PO Q6H PRN PRN Reason: Indigestion Last Admin: 03/12/20 22:46 Dose: 1,000 mg Documented by: Carvedilol (Coreg) 12.5 mg PO DAILY [facility] Last Admin: 03/13/20 13:00 Dose: Not Given Documented by: Ferrous Sulfate (Ferrous Sulfate) 325 mg PO BIDMEALS [facility] Last Admin: 03/13/20 17:49 Dose: 325 mg Documented by: Furosemide (Lasix) 60 mg PO DAILY [facility] Last Admin: 03/13/20 13:01 Dose: Not Given Documented by: Sodium Chloride (Normal Saline) 1,000 mls @ 200 mls/hr IV STAT ONE Stop: 03/12/20 19:13 Last Admin: 03/12/20 14:27 Dose: 200 mls/hr Documented by: Propofol (Diprivan 100 Ml) 100 mls @ 3.062 mls/hr IV TITRATE ROSALBA; Protocol Sodium Chloride (Normal Saline) 1,000 mls @ 999 mls/hr IV STAT ONE Stop: 03/12/20 18:14 Last Admin: 03/12/20 18:09 Dose: 999 mls/hr Documented by: Losartan Potassium (Cozaar) 25 mg PO BID [facility] Last Admin: 03/13/20 13:00 Dose: Not Given Documented by: Losartan Potassium (Cozaar) 25 mg PO DAILY [facility] Ondansetron HCl (Zofran) 4 mg IVPUSH Q4H PRN PRN Reason: Nausea/Vomiting Pantoprazole Sodium (Protonix) 40 mg PO BID [facility] Last Admin: 03/13/20 08:30 Dose: 40 mg Documented by: Rivaroxaban (Xarelto) 20 mg PO WITHDINNER [facility] Last Admin: 03/13/20 17:49 Dose: 20 mg Documented by: Sodium Chloride (Saline Flush) 10 ml FLUSH ASDIRECTED PRN PRN Reason: Keep Vein Open Last Admin: 03/12/20 14:27 Dose: 10 ml Documented by: Sodium Chloride (Saline Flush) 2.5 ml FLUSH ASDIRECTED PRN PRN Reason: Keep Vein Open Last Admin: 03/12/20 14:27 Dose: 2.5 ml Documented by: Succinylcholine Chloride (Quelicin) 100 mg IV NOW STA Stop: 03/12/20 17:14 Last Admin: 03/12/20 18:15 Dose: Not Given Documented by: Zinc Acetate/Diphenhydramine (Benadryl Itch Stopping Crm) 0 gm TOP ASDIRECTED PRN PRN Reason: Itching Last Admin: 03/13/20 14:31 Dose: 1 applic Documented by: - Free Text/Narrative Note: I have seen and evaluated the patient. I have discussed findings and treatment plan with resident. I agree with the assessment and plan in the following note.
[2020-03-14] MEDS ORDERED: Losartan 50 MG Tab PO SCH (09:00)
== END 2020-03-13 18:10 | disposition home or self-care (01) ==
LOC: MW.ED 14:04 → MW.MS 16:27
PROVIDERS: ADMIT Internal Medicine; ATTEND Internal Medicine
DX: D64.9 Anemia, unspecified (principal); I11.0 Hypertensive heart disease with heart failure; I50.9 Heart failure, unspecified; I48.91 Unspecified atrial fibrillation; J44.9 Chronic obstructive pulmonary disease, unspecified; I25.10 Atherosclerotic heart disease of native coronary artery without angina pectoris; E78.00 Pure hypercholesterolemia, unspecified; Z20.822 Contact with and (suspected) exposure to COVID-19; E87.5 Hyperkalemia; Z79.01 Long term (current) use of anticoagulants; Z79.899 Other long term (current) drug therapy; Z87.891 Personal history of nicotine dependence; Z90.49 Acquired absence of other specified parts of digestive tract
CPT/HCPCS: 36415; 36430; 71045; 80053; 81003; 82607; 83010; 83880; 85014; 85018; 85025; 85610; 86850; 86900; 86901; 86920; 86921; 86922; 93005; 99285; A9270; G0378; J0330; J7030; P9016; U0002; 93010; 99283

== ENCOUNTER 2021-03-17 05:34 | Emergency (ER) | payer MEDICARE, BC, OTHER ==
[2021-03-17] MEDS ORDERED: Sodium Chloride 0.9% 10 ML Syringe FLUSH PRN (05:47)
[2021-03-17] MEDS ORDERED: Sodium Chloride 0.9% 2.5 ML Syringe FLUSH PRN (05:47)
[2021-03-17 06:09] LABS: BLOOD UREA NITROGEN,BUN 27 mg/dL (7.0-18.0); CARBON DIOXIDE,CO2 26.5 mmol/L (21.0-32.0); CHLORIDE,CL 106 mmol/L (98-107); GLUCOSE RANDOM 141 mg/dL (74-106); LIPASE 88 U/L (73-393); POTASSIUM,K 4.2 mmol/L (3.5-5.1); SODIUM,NA 143 mmol/L (136-148)
[2021-03-17] MEDS ORDERED: Iopamidol 755 MG/ML 500 ML Multipack Bottle IVPUSH ONE (06:26)
[2021-03-17] MEDS ORDERED: Ondansetron 4 MG/2 ML SDV IVPUSH ONE (07:31)
[2021-03-17] MEDS ORDERED: fentaNYL 50 MCG/ML SDV IVPUSH ONE (07:31)
[2021-03-17] MEDS ORDERED: Furosemide 40 MG/4 ML VIAL IVPUSH ONE (07:31)
[2021-03-17] MEDS ORDERED: cefTRIAXone 1 GM in Sodium Chloride 0.9% 50 ML IV ONE (10:23)
[2021-03-17] MEDS ORDERED: metroNIDAZOLE/Normal Saline 500 MG in Premix Bag 1 BAG IV ONE (10:24)
[2021-03-17] MEDS ORDERED: Aspirin 81 MG Tab.Chew PO ONE (12:35)
[2021-03-17 14:26] VITALS: BP 101/58; PULSE 93
== END 2021-03-17 14:30 ==
LOC: MW.ED 05:34
DX: K81.0 Acute cholecystitis (principal); I21.4 Non-ST elevation (NSTEMI) myocardial infarction; J81.1 Chronic pulmonary edema; I48.91 Unspecified atrial fibrillation; I25.10 Atherosclerotic heart disease of native coronary artery without angina pectoris; I11.0 Hypertensive heart disease with heart failure; I50.9 Heart failure, unspecified; E78.00 Pure hypercholesterolemia, unspecified; J44.9 Chronic obstructive pulmonary disease, unspecified; Z79.01 Long term (current) use of anticoagulants; Z79.899 Other long term (current) drug therapy; Z20.822 Contact with and (suspected) exposure to COVID-19
CPT/HCPCS: 36415; 71045; 71275; 74174; 76705; 80053; 81003; 83605; 83690; 83880; 84484; 85025; 85610; 87040; 93005; 96365; 96368; 96375; 99285; A9270; J0696; J1940; J2405; J3010; J3490; Q9967; U0002

== ENCOUNTER 2021-04-10 16:19 | Emergency (ER) | payer MEDICARE, BC, OTHER ==
[2021-04-10] MEDS ORDERED: Sodium Chloride 0.9% 10 ML Syringe FLUSH PRN (17:00)
[2021-04-10] MEDS ORDERED: Sodium Chloride 0.9% 2.5 ML Syringe FLUSH PRN (17:00)
[2021-04-10 17:51] LABS: BLOOD UREA NITROGEN,BUN 128 mg/dL (7.0-18.0); CHLORIDE,CL 103 mmol/L (98-107); GLUCOSE RANDOM 119 mg/dL (74-106); SODIUM,NA 133 mmol/L (136-148)
[2021-04-10 18:00] LABS: CORONAVIRUS COVID-19 NAA NEGATIVE (NEGATIVE); INFLUENZA A NAA NEGATIVE (NEGATIVE); INFLUENZA B NAA NEGATIVE (NEGATIVE)
[2021-04-10 18:10] LABS: POTASSIUM,K 7.8 mmol/L (3.5-5.1)
[2021-04-10] MEDS ORDERED: Sodium Chloride 0.9% 1,000 ML IV ONE (18:11)
[2021-04-10] MEDS ORDERED: Calcium Chloride 10% 1 GM/10 ML Syringe IV ONE (18:13)
[2021-04-10] MEDS ORDERED: Sodium Bicarbonate 8.4% 50 MEQ/50 ML SDV IVPUSH ONE ×2 (18:13→18:19)
[2021-04-10] MEDS ORDERED: 50% Dextrose in Water 50 ML Syringe IVPUSH ONE (18:13)
[2021-04-10] MEDS ORDERED: Insulin Regular, Human 100 Units/ML 10 ML Vial IVPUSH ONE (18:13)
[2021-04-10] MEDS ORDERED: Albuterol 0.5% 5 MG/ML Neb Soln 20 ML Bottle NEB ONE (18:15)
[2021-04-10] MEDS ORDERED: Lactated Ringers 1,000 ML IV SCH ×2 (18:30→21:45)
[2021-04-10] MEDS ORDERED: Sodium Bicarbonate 8.4% 50 MEQ/50 ML Syringe ONE (18:47)
[2021-04-10] MEDS ORDERED: Metoprolol Tartrate 5 MG/5 ML SDV IVPUSH ONE (19:52)
[2021-04-10 20:42] LABS: CARBON DIOXIDE,CO2 17.8 mmol/L (21.0-32.0); POTASSIUM,K 5.8 mmol/L (3.5-5.1)
[2021-04-10] MEDS ORDERED: Lactated Ringers 1,000 ML IV ONE (23:53)
[2021-04-10] MEDS ORDERED: Famotidine 20 MG/2 ML SDV IVPUSH ONE (23:56)
[2021-04-11 01:44] LABS: CARBON DIOXIDE,CO2 18.8 mmol/L (21.0-32.0); POTASSIUM,K 5.8 mmol/L (3.5-5.1)
[2021-04-11] MEDS ORDERED: Lactated Ringers 1,000 ML IV ONE (02:00)
[2021-04-11 02:56] VITALS: BP 83/47; PULSE 81
== END 2021-04-11 03:45 ==
LOC: MW.ED 16:19
DX: I95.9 Hypotension, unspecified (principal); N17.9 Acute kidney failure, unspecified; I11.0 Hypertensive heart disease with heart failure; I50.9 Heart failure, unspecified; J44.9 Chronic obstructive pulmonary disease, unspecified; E86.0 Dehydration; E87.5 Hyperkalemia; R19.7 Diarrhea, unspecified; I48.91 Unspecified atrial fibrillation; I25.10 Atherosclerotic heart disease of native coronary artery without angina pectoris; Z20.822 Contact with and (suspected) exposure to COVID-19
CPT/HCPCS: 0240U; 36415; 71045; 80048; 80053; 81001; 82803; 82947; 83605; 83735; 84100; 84484; 85025; 87045; 87046; 87086; 87324; 87328; 87329; 87449; 87899; 93005; 96374; 96375; 99291; 99292; J1815; J3490; J7120; 93010

== ENCOUNTER 2022-01-13 16:37 | Inpatient (IN) | payer MEDICARE, BC, OTHER ==
[2022-01-13] MEDS ORDERED: Calcium Carbonate 500 MG Tab.Chew PO PRN (18:31)
[2022-01-13] MEDS ORDERED: Ferrous Sulfate 325 MG Tab PO SCH (18:45)
[2022-01-13] MEDS: Pantoprazole 40 MG in Sodium Chloride 0.9% 10 ML IVPUSH SCH (18:45)
[2022-01-13 18:52] LABS: CARBON DIOXIDE,CO2 28.8 mmol/L (21.0-32.0); POTASSIUM,K 4.7 mmol/L (3.5-5.1)
[2022-01-13 18:53] LABS: BILIRUBIN INDIRECT 0.2
[2022-01-13] MEDS: Ascorbic Acid 500 MG Tab PO SCH (18:54)
[2022-01-13] MEDS ORDERED: Carvedilol 12.5 MG Tab PO SCH (21:00)
[2022-01-14] MEDS: Pantoprazole 40 MG in Sodium Chloride 0.9% 10 ML IVPUSH SCH ×2 (05:15→16:47)
[2022-01-14] MEDS ORDERED: CALAMINE TOP PRN (06:11)
[2022-01-14] MEDS ORDERED: PRAMOXINE HCL TOP PRN (06:11)
[2022-01-14 07:03] LABS: CARBON DIOXIDE,CO2 29.1 mmol/L (21.0-32.0); POTASSIUM,K 4.3 mmol/L (3.5-5.1)
[2022-01-14] MEDS: Carvedilol 3.125 MG Tab PO SCH ×2 (08:40→21:07)
[2022-01-14] MEDS: Ascorbic Acid 500 MG Tab PO SCH (08:40)
[2022-01-14] MEDS ORDERED: Cyanocobalamin (Vitamin B12) 500 MCG Tab PO SCH (09:00)
[2022-01-14] MEDS ORDERED: Ferrous Sulfate 325 MG Tab PO SCH (09:00)
[2022-01-14] MEDS: Albuterol/Ipratropium 3.0-0.5 MG/3 ML Neb Soln NEB PRN ×2 (09:28→13:57)
[2022-01-14] MEDS: Cyanocobalamin (Vitamin B12) 500 MCG Tab PO SCH (10:14)
[2022-01-14] MEDS: Folic Acid/Vitamin B Complex With C Cap PO SCH (10:14)
[2022-01-14] MEDS: atorvaSTATin 20 MG Tab PO SCH (11:18)
[2022-01-14] MEDS: Furosemide 40 MG Tab PO SCH (11:18)
[2022-01-14] MEDS: Sodium Ferric Gluconate Cmplex 125 MG in Sodium Chloride 0.9% 100 ML IV SCH (11:27)
[2022-01-14] MEDS ORDERED: Iopamidol 755 MG/ML 500 ML Multipack Bottle IVPUSH ONE (12:36)
[2022-01-14] MEDS ORDERED: Piperacillin/Tazobactam 3.375 GM in Sodium Chloride 0.9% 50 ML IV SCH (15:00)
[2022-01-14] MEDS: Piperacillin/Tazobactam 3.375 GM in Sodium Chloride 0.9% 50 ML IV SCH ×2 (16:48→21:00)
[2022-01-15] MEDS: Piperacillin/Tazobactam 3.375 GM in Sodium Chloride 0.9% 50 ML IV SCH ×2 (04:09→10:55)
[2022-01-15] MEDS: Pantoprazole 40 MG in Sodium Chloride 0.9% 10 ML IVPUSH SCH (06:06)
[2022-01-15 07:00] LABS: CARBON DIOXIDE,CO2 29.1 mmol/L (21.0-32.0); POTASSIUM,K 4.3 mmol/L (3.5-5.1)
[2022-01-15] MEDS: Sodium Ferric Gluconate Cmplex 125 MG in Sodium Chloride 0.9% 100 ML IV SCH (08:48)
[2022-01-15] MEDS: Folic Acid/Vitamin B Complex With C Cap PO SCH (08:56)
[2022-01-15] MEDS: Carvedilol 3.125 MG Tab PO SCH (08:56)
[2022-01-15] MEDS: Cyanocobalamin (Vitamin B12) 500 MCG Tab PO SCH (08:57)
[2022-01-15] MEDS: Ascorbic Acid 500 MG Tab PO SCH (08:58)
[2022-01-15] MEDS: Furosemide 40 MG Tab PO SCH (08:58)
[2022-01-15] MEDS: atorvaSTATin 20 MG Tab PO SCH (08:58)
[2022-01-15 11:26] VITALS: BP 102/58; PULSE 75
== END 2022-01-15 13:30 | disposition home or self-care (01) | DRG 812 ==
LOC: MW.MS 16:37
PROVIDERS: ADMIT Student in an Organized Health Care Education/Training Program; ATTEND Student in an Organized Health Care Education/Training Program
PROC: 30233N1 Transfusion of Nonautologous Red Blood Cells into Peripheral Vein, Percutaneous Approach (ICD-10-PCS; principal; 2022-01-13)
DX: D50.9 Iron deficiency anemia, unspecified (principal); I13.0 Hypertensive heart and chronic kidney disease with heart failure and stage 1 through stage 4 chronic kidney disease, or unspecified chronic kidney disease; I50.22 Chronic systolic (congestive) heart failure; K81.0 Acute cholecystitis; I48.91 Unspecified atrial fibrillation; J44.9 Chronic obstructive pulmonary disease, unspecified; N18.9 Chronic kidney disease, unspecified; Z20.822 Contact with and (suspected) exposure to COVID-19; Z66 Do not resuscitate; K57.90 Diverticulosis of intestine, part unspecified, without perforation or abscess without bleeding; I25.10 Atherosclerotic heart disease of native coronary artery without angina pectoris; E78.00 Pure hypercholesterolemia, unspecified; D63.1 Anemia in chronic kidney disease; Z90.89 Acquired absence of other organs; Z98.41 Cataract extraction status, right eye; Z79.01 Long term (current) use of anticoagulants; Z79.899 Other long term (current) drug therapy; Z98.42 Cataract extraction status, left eye; Z90.49 Acquired absence of other specified parts of digestive tract; Z87.891 Personal history of nicotine dependence
CPT/HCPCS: 36415; 36430; 74177; 74177-26; 76705; 76705-26; 80048; 80053; 81001; 82247; 82248; 82272; 82728; 83010; 83550; 83615; 83735; 85014; 85018; 85025; 85045; 86850; 86900; 86901; 86920; 94640; A9270-GY; C9113; J2543; J3490; J7620-GY; P9016; Q9967; U0002